=== PATIENT | female | born 1975 | race Caucasian/White ===

== ENCOUNTER 2021-12-10 09:49 | Outpatient (CLI) | payer OTHER, SELFPAY ==
[2021-12-10 13:58] LABS: Albumin* 4.1 g/dL (3.3-5.0); Chloride* 103 mmol/L (96-114); Potassium* 4.4 mmol/L (3.6-5.1); Sodium* 136 mmol/L (135-149)
[2021-12-10 14:00] LABS: Creatinine* 0.7 mg/dL (0.5-1.5); Estimated Glomerular Filt Rate 107 ml/min
[2021-12-10 14:01] LABS: Alanine Aminotransferase* 84 U/L (4-35); Alkaline Phosphatase* 130 U/L (40-150); Aspartate Amino Transferase* 79 U/L (12-35); Bilirubin Total* 0.2 mg/dL (0.1-1.5); Blood Urea Nitrogen* 12 mg/dL (5-24); Carbon Dioxide* 28 mmol/L (20-32); Glucose* 126 mg/dL (60-115); Total Protein* 7.2 g/dL (6.0-8.3)
[2021-12-10 14:02] LABS: Calcium* 9.6 mg/dL (8.4-10.6)
[2021-12-11 13:54] LABS: Follicle Stimulating Hormone 91.7 IU/L
== END 2021-12-10 09:50 | disposition home or self-care (01) ==
PROVIDERS: PCP Family Medicine; Visit Provider Family Medicine
DX: Z01.419 Encounter for gynecological examination (general) (routine) without abnormal findings (principal); R23.2 Flushing; E11.9 Type 2 diabetes mellitus without complications; F32.81 Premenstrual dysphoric disorder; R74.01 Elevation of levels of liver transaminase levels
CPT/HCPCS: 80053; 83001; 84443

== ENCOUNTER 2022-03-26 11:20 | Outpatient (CLI) | payer OTHER, SELFPAY ==
[2022-03-26 21:29] LABS: Chloride* 101 mmol/L (96-114)
[2022-03-26 21:30] LABS: Potassium* 4.5 mmol/L (3.6-5.1); Sodium* 136 mmol/L (135-149)
[2022-03-26 21:32] LABS: Alanine Aminotransferase* 45 U/L (4-35); Alkaline Phosphatase* 115 U/L (40-150); Aspartate Amino Transferase* 53 U/L (12-35); Bilirubin Total* 0.3 mg/dL (0.1-1.5); Blood Urea Nitrogen* 12 mg/dL (5-24); Carbon Dioxide* 27 mmol/L (20-32); Cholesterol* 186 mg/dL (90-199); Creatinine* 0.7 mg/dL (0.5-1.5); Estimated Glomerular Filt Rate 106 ml/min; Glucose* 120 mg/dL (60-115); Total Protein* 6.7 g/dL (6.0-8.3); Triglycerides* 186 mg/dL (40-149)
[2022-03-26 21:33] LABS: Calcium* 9.2 mg/dL (8.4-10.6); HDL Cholesterol* 61 mg/dL (>=50); LDL Cholesterol Calculated 88 mg/dL (<100)
[2022-03-26 21:36] LABS: Total Protein Urine < 5 mg/dL
[2022-03-26 21:38] LABS: Creatinine Urine 116.6 mg/dL
[2022-03-26 21:42] LABS: Microalbumin Creatinine Ratio 0 mg/g (0-30); Microalbumin Urine < 1 mg/dL
[2022-03-26 22:20] LABS: Hepatitis C Virus Antibody* Negative (Negative)
== END 2022-03-26 11:21 | disposition home or self-care (01) ==
PROVIDERS: PCP Family Medicine; Visit Provider Family Medicine
DX: Z00.00 Encounter for general adult medical examination without abnormal findings (principal); E11.9 Type 2 diabetes mellitus without complications; Z13.6 Encounter for screening for cardiovascular disorders; Z11.59 Encounter for screening for other viral diseases
CPT/HCPCS: 80053; 80061; 82043; 82570; 84156; 86803

== ENCOUNTER 2022-06-03 16:59 | Outpatient (CLI) | payer OTHER, SELFPAY ==
--- NOTE | 2022-06-03 17:15 | CRLHL7_ITS ---
For Patients: As a result of the Century Cures Act, medical imaging exams and procedure reports are released immediately into your electronic medical record. You may view this report before your referring provider. If you have questions, please contact your health care provider. BILATERAL SCREENING MAMMOGRAM WITH COMPUTER-AIDED DETECTION AND TOMOSYNTHESIS TECHNIQUE: CC and MLO views were obtained. These mammographic images have been obtained using full-field digital technique. These mammographic images were interpreted with the benefit of computer-aided detection. Breast Tomosynthesis was used in this interpretation. COMPARISON FILM: 05/06/21, 05/23/20, 08/04/19. FINDINGS: The breasts are heterogeneously dense, which may obscure small masses IMPRESSION: There is no radiographic evidence for malignancy. ASSESSMENT: BI-RADS Category 1: Negative RECOMMENDATION: Routine screening mammogram in 1 year. A lay language report of this examination will be provided to the patient. David Bergeron M.D. Diagnostic Radiologist [email or web address] JACKY/Dictated by: David Bergeron MD @ 06/04/2022 10:50:00 AM (Electronically Signed)
== END 2022-06-03 17:00 | disposition home or self-care (01) ==
PROVIDERS: PCP Family Medicine; Visit Provider Registered Nurse
DX: Z12.31 Encounter for screening mammogram for malignant neoplasm of breast (principal); R92.2 Inconclusive mammogram
CPT/HCPCS: 77063; 77067

== ENCOUNTER 2022-06-27 12:23 | Outpatient (CLI) | payer OTHER, SELFPAY ==
[2022-06-27 21:44] LABS: Chloride* 106 mmol/L (96-114); Potassium* 4.5 mmol/L (3.6-5.1); Sodium* 138 mmol/L (135-149)
[2022-06-27 21:46] LABS: Bilirubin Total* 0.4 mg/dL (0.1-1.5); Creatinine* 0.9 mg/dL (0.5-1.5); Estimated Glomerular Filt Rate 78 ml/min
[2022-06-27 21:47] LABS: Alanine Aminotransferase* 72 U/L (4-35); Alkaline Phosphatase* 105 U/L (40-150); Aspartate Amino Transferase* 72 U/L (12-35); Blood Urea Nitrogen* 14 mg/dL (5-24); Calcium* 9.2 mg/dL (8.4-10.6); Carbon Dioxide* 26 mmol/L (20-32); Glucose* 126 mg/dL (60-115); Total Protein* 6.8 g/dL (6.0-8.3)
== END 2022-06-27 12:24 | disposition home or self-care (01) ==
PROVIDERS: PCP Family Medicine; Visit Provider Family Medicine
DX: R74.01 Elevation of levels of liver transaminase levels (principal)
CPT/HCPCS: 80053

== ENCOUNTER 2022-12-11 14:16 | Outpatient (CLI) | payer OTHER, SELFPAY ==
[2022-12-11 23:25] LABS: Chlamydia DNA Amplified* NOT DETECTED (No Detected); GC DNA Amplified* NOT DETECTED (No Detected)
== END 2022-12-11 14:17 | disposition home or self-care (01) ==
PROVIDERS: PCP Family Medicine; Visit Provider Registered Nurse
DX: N89.8 Other specified noninflammatory disorders of vagina (principal); R35.0 Frequency of micturition
CPT/HCPCS: 87086; 87491; 87591

== ENCOUNTER 2023-01-23 09:50 | Outpatient (CLI) | payer OTHER, SELFPAY | END 2023-01-23 09:51 | disposition home or self-care (01) | LOC: FRMREF 09:50 | PROVIDERS: PCP Family Medicine; Visit Provider Registered Nurse | DX: R35.0 Frequency of micturition (principal) | CPT/HCPCS: 87086 ==

== ENCOUNTER 2023-02-19 18:05 | Emergency (ER) | payer OTHER, SELFPAY ==
[2023-02-19] VITALS (16 sets, daily range): BP systolic 114–144; BP diastolic 71–84; PULSE 63–74; RESP 18; TEMP 36.1; O2SAT 95–98; BMI 43.3
--- NOTE | 2023-02-19 18:35 | CRLHL7_ITS ---
For Patients: As a result of the Century Cures Act, medical imaging exams and procedure reports are released immediately into your electronic medical record. You may view this report before your referring provider. If you have questions, please contact your health care provider. INDICATION: Chest pain. TECHNIQUE: Chest 2 views. COMPARISON: None. FINDINGS: No focal consolidation, pleural effusion, or pneumothorax. Normal heart size and pulmonary vascularity. The bones are unremarkable. IMPRESSION: No acute cardiopulmonary findings. Dictated by Linnea Mercado MD @ 02/19/2023 8:11:50 PM (Electronically Signed)
[2023-02-19 18:53] LABS: Basophils Absolute Auto 0.01 K/uL (0.00-0.30); Basophils Percent Auto 0.2 % (0.0-3.0); Eosinophils Absolute Auto 0.12 K/uL (0.00-0.50); Eosinophils Percent Auto 1.9 % (0.0-7.0); Hematocrit 42.8 % (33.0-51.0); Hemoglobin* 14.4 gm/dL (12.0-16.0); Immature Granulocytes Abs Auto 0.01 K/uL (0.00-0.30); Immature Granulocytes Pct Auto 0.2 %; Lymphocytes Absolute Auto 2.01 K/uL (0.90-2.90); Lymphocytes Percent Auto 31.4 % (20-44); Mean Corpuscular HGB Conc 34 gm/dL (32-36); Mean Corpuscular Hemoglobin 29 pg (26-34); Mean Corpuscular Volume 87 fL (80-100); Monocytes Percent Auto 9.4 % (0.0-11.0); Neutrophils Absolute Auto 3.65 K/uL (1.7-7.0); Neutrophils Percent Auto 56.9 % (42.0-72.0); Platelet Count* 197 K/uL (140-440); RDW Coefficient of Variation % 12.5 % (11.5-15.5); Red Blood Count 4.95 m/uL (4.00-5.20)
[2023-02-19 18:56] LABS: Slide Review Reflex No
[2023-02-19 18:59] LABS: Troponin, Point-of-Care* 0.01 ng/ml (0.01-0.04)
[2023-02-19 19:06] LABS: Chloride* 101 mmol/L (96-114); Potassium* 4.4 mmol/L (3.6-5.1); Sodium* 137 mmol/L (135-149)
[2023-02-19 19:09] LABS: Anion Gap 8 mEq/L (7-15); Blood Urea Nitrogen* 16 mg/dL (7-30); Carbon Dioxide* 28 mmol/L (20-32); Est. Creatinine Clearance* 60.56; Estimated Glomerular Filt Rate 69 ml/min; Glucose* 99 mg/dL (60-115)
[2023-02-19 19:10] LABS: Calcium* 8.9 mg/dL (8.4-10.6)
--- NOTE | 2023-02-19 19:20 | ED_ITS ---
HPI - Chest Pain General Date Seen: 02/19/23 Chief Complaint: Chest Pain Stated Complaint: Chest pain Time Seen by Provider: 02/19/23 18:11 Source: patient Mode of arrival: ambulatory Limitations: no limitations History of Present Illness HPI narrative: Patient is a 48-year-old female presenting to the emergency department for chest pain. She was sent in by her primary care provider for an abnormal EKG. Patient states she was getting evaluation for a sinus procedure she is having done. She informed her primary doctor that she was having chest pain. I spoke to primary care provider and she states that while the patient is looking well she is concerned because there was possible new anterior infarct that appears to be old but was not seen on her previous EKG. Patient was then Tiffany to [facility] Emergency Department. She states that while she has chest pain this has been going on for over 20 years in today's not any different than normal. She has had it evaluated multiple times and has always been normal. She does states she is scheduled to have a have a stress test done before she has her sinus procedure. Denies fevers, chills, weakness, shortness of breath, abdominal pain, headache, vision changes, lightheadedness, dizziness. Related Data Home Medications Medication Instructions Recorded Confirmed albuterol sulfate 90 mcg/actuation 2 inhalation PRN 12/10/21 02/19/23 aerosol inhaler Previous Rx's Medication Instructions Recorded aspirin 81 mg tablet,delayed 81 mg PO QDAY #90 tabs 06/27/22 release pravastatin 10 mg tablet 10 mg PO .Bedtime #90 tabs 07/25/22 triamcinolone acetonide 0.1 % 1 applic topical BID #80 grams 09/02/22 topical cream fluconazole 150 mg tablet 150 mg PO ONCE #1 tab 12/11/22 nitrofurantoin macrocrystal 100 mg 100 mg PO BID #10 caps 01/23/23 capsule (Macrodantin) venlafaxine 75 mg capsule,extended 75 mg PO QDAY #90 caps 02/19/23 release 24 hr Allergies Allergy/AdvReac Type Severity Reaction Status Date / Time azithromycin Allergy Unknown Anaphylaxis Verified 02/19/23 16:38 metformin AdvReac Intermediate Diarrhea Verified 02/19/23 16:38 Sulfa Antibiotics Allergy Unknown Dry patch Uncoded 02/19/23 16:38 on lip, purple spots on feet Review of Systems Status of ROS Reports: 10 or more systems reviewed and unremarkable except as noted in History and below [facility] Medical History Yeast dermatitis ?B37.2 - Candidiasis of skin and nail (ICD-10) Sinusitis ?J32.9 - Chronic sinusitis, unspecified (ICD-10) Hot flashes ?R23.2 - Flushing (ICD-10) History of hyperlipidemia ?Z86.39 - Personal history of other endocrine, nutritional and metabolic d isease (ICD-10) History of fatty infiltration of liver ?Z87.19 - Personal history of other diseases of the digestive system (ICD-10) History of abnormal uterine bleeding ?Z87.42 - Personal history of other diseases of the female genital tract (ICD-10) History of abnormal cervical Papanicolaou smear ?Z87.42 - Personal history of other diseases of the female genital tract (ICD-10) Surgical History H/O eye surgery ?Z98.890 - Other specified postprocedural states (ICD-10) History of endometrial ablation ?Z98.890 - Other specified postprocedural states (ICD-10) History of colposcopy ?Z98.890 - Other specified postprocedural states (ICD-10) Family History Father Bladder cancer Diabetes Paternal Grandfather Breast cancer Diabetes Coronary artery disease Heart disease Maternal Grandfather Coronary artery disease Paternal Grandmother Diabetes Maternal Grandmother Diabetes Social History Narrative: Exercises regularly Non-smoker Social alcohol use Smoking Status: Never smoker Little interest or pleasure in doing things: not at all Feeling down, depressed, or hopeless: not at all Exam Narrative Exam Narrative: Const: Well-nourished, Well-developed, in mild distress Eyes: PERRL, no conjunctival injection, and symmetrical lids HENT: Atraumatic external nose and ears. Moist mucous membranes. Neck: Symmetric, trachea midline, No thyromegaly. CVS: RRR, No murmurs or gallops. Peripheral pulses 2+ and equal in all extremities RESP: Unlabored respiratory effort. Clear to auscultation bilaterally. GI: Nontender/Nondistended, No rebound or guarding. MSK:Extremities w/o deformity, Normal Active ROM Skin: Warm, Dry. No rashes or lesions. Neuro: Normal Muscle tone, No focal neurological deficits. Psych: Awake, Alert, & Oriented x3. Appropriate mood and affect. Const Vital Signs, click to edit/add: Vital Signs - 24 hr 02/19/23 18:09 02/19/23 19:10 02/19/23 19:15 Temperature 97 F L Pulse Rate 66 68 Pulse Rate [Right Pulse Oximeter] 74 Respiratory Rate 18 Blood Pressure Blood Pressure [Right Upper Arm] 144/84 H Pulse Oximetry 98 98 96 Oxygen Delivery Method Room Air 02/19/23 19:17 02/19/23 19:18 02/19/23 19:30 Temperature Pulse Rate 65 67 69 Pulse Rate [Right Pulse Oximeter] Respiratory Rate Blood Pressure 125/78 Blood Pressure [Right Upper Arm] Pulse Oximetry 97 97 97 Oxygen Delivery Method 02/19/23 19:33 02/19/23 19:45 Temperature Pulse Rate 67 63 Pulse Rate [Right Pulse Oximeter] Respiratory Rate Blood Pressure Blood Pressure [Right Upper Arm] Pulse Oximetry 97 97 Oxygen Delivery Method Course Vital Signs Vital signs: Initial Vital Signs Temperature 97 F L 02/19/23 18:09 Temperature Source Temporal Artery Scan 02/19/23 18:09 Pulse Rate 74 02/19/23 18:09 Respiratory Rate 18 02/19/23 18:09 Blood Pressure 144/84 H 02/19/23 18:09 Blood Pressure Mean 104 02/19/23 18:09 Blood Pressure Position Sitting 02/19/23 18:09 Pulse Oximetry 98 02/19/23 18:09 Oxygen Delivery Method Room Air 02/19/23 18:09 Vital Signs Temperature 97 F L 02/19/23 18:09 Pulse Rate 74 02/19/23 18:09 Respiratory Rate 18 02/19/23 18:09 Blood Pressure 144/84 H 02/19/23 18:09 Pulse Oximetry 98 02/19/23 18:09 Oxygen Delivery Method Room Air 02/19/23 18:09 Temperature 97 F L 02/19/23 18:09 Pulse Rate 63 02/19/23 19:45 Respiratory Rate 18 02/19/23 18:09 Blood Pressure 125/78 02/19/23 19:17 Pulse Oximetry 97 02/19/23 19:45 Oxygen Delivery Method Room Air 02/19/23 18:09 MDM - Chest Pain MDM Narrative Medical decision making narrative: Patient is a 48-year-old female presenting for chest pain. She has had this chest pain on off for over 20 years and is not any different today than normal. She was sent in by her primary care provider for evaluation. She looks to be doing well right now and appears comfortable in bed. I believe a pulmonary embolism is unlikely at this time as she is not short of breath at all and symptoms do not worsen with deep breaths. Also the symptoms are not any different than her normal chest pain. Did order a troponin, CBC, BMP. Chest x- ray also ordered to look for signs of aortic dissection or pneumothorax. Again I believe these are unlikely. Lab Data Labs: Lab Results 02/19/23 02/19/23 02/19/23 Range/Units 18:35 18:44 20:00 WBC 6.40 (4.50-11.00) K/uL RBC 4.95 (4.00-5.20) m/uL Hgb 14.4 (12.0-16.0) gm/dL Hct 42.8 (33.0-51.0) % MCV 87 (80-100) fL MCH 29 (26-34) pg MCHC 34 (32-36) gm/dL RDW Coeff of Beatriz 12.5 (11.5-15.5) % Plt Count 197 (140-440) K/uL Neut % (Auto) 56.9 (42.0-72.0) % Lymph % (Auto) 31.4 (20-44) % [place] % (Auto) 9.4 (0.0-11.0) % Eos % (Auto) 1.9 (0.0-7.0) % Baso % (Auto) 0.2 (0.0-3.0) % Neut # (Auto) 3.65 (1.7-7.0) K/uL Lymph # (Auto) 2.01 (0.90-2.90) K/uL [place] # (Auto) 0.60 (0.00-0.90) K/UL Eos # (Auto) 0.12 (0.00-0.50) K/uL Baso # (Auto) 0.01 (0.00-0.30) K/uL Abs Immat Gran (auto) 0.01 (0.00-0.30) K/uL Imm/Tot Granulo (auto) 0.2 % Sodium 137 (135-149) mmol/L Potassium 4.4 (3.6-5.1) mmol/L Chloride 101 (96-114) mmol/L Carbon Dioxide 28 (20-32) mmol/L Anion Gap 8 (7-15) mEq/L BUN 16 (7-30) mg/dL Creatinine 1.0 (0.5-1.5) mg/dL Estimated Creat Clear 60.56 Estimated GFR 69 ml/min Glucose 99 (60-115) mg/dL Calcium 8.9 (8.4-10.6) mg/dL POC Troponin I 0.01 0.00 L (0.01-0.04) ng/ml Imaging Data Chest x-ray: Radiologist's impression: INDICATION: Chest pain. TECHNIQUE: Chest 2 views. COMPARISON: None. FINDINGS: No focal consolidation, pleural effusion, or pneumothorax. Normal heart size and pulmonary vascularity. The bones are unremarkable. IMPRESSION: No acute cardiopulmonary findings. Dictated by Linnea Mercado MD @ 02/19/2023 8:11:50 PM ECG Data Attestation: I personally reviewed and interpreted this ECG as follows: Prior ECG tracings: not available for review Interpretation: Normal sinus rhythm with a rate of 73 beats per minute, normal intervals, normal axis, no ST or T-wave abnormalities. I do not see Q-waves in the anterior leads Discharge Plan Discharge Clinical Impression: Atypical chest pain Patient Disposition: Home, Self-Care Condition: Stable Instructions: Noncardiac Chest Pain (ED) Additional Instructions: Follow-up with the primary care provider. Make sure you get your stress test scheduled. Return for new or worsening symptoms. Prescriptions: No Action albuterol sulfate 90 mcg/actuation HFA aerosol inhaler 2 inhalation PRN aspirin 81 mg tablet,delayed release (DR/EC) 81 mg PO QDAY Qty: 90 3RF pravastatin 10 mg tablet 10 mg PO .Bedtime Qty: 90 3RF triamcinolone acetonide 0.1 % cream 1 applic topical BID Qty: 80 1RF venlafaxine 75 mg capsule,extended release 24hr 75 mg PO QDAY Qty: 90 3RF nitrofurantoin macrocrystal [Macrodantin] 100 mg capsule 100 mg PO BID Qty: 10 0RF Rx Instructions: must administer with a meal/food fluconazole 150 mg tablet 150 mg PO ONCE Qty: 1 0RF Rx Instructions: as a single dose Follow Up/Referrals: Angie Salazar MD [Primary Care Provider] - Stand Alone Forms: [facility] Info Inst[facility]
== END 2023-02-19 21:21 | disposition home or self-care (01) ==
PROVIDERS: Emergency Provider Student in an Organized Health Care Education/Training Program; PCP Family Medicine
DX: R07.9 Chest pain, unspecified (principal)
CPT/HCPCS: 36415; 71046; 80048; 80053; 84443; 84484; 85025; 99283; 99284

== ENCOUNTER 2023-03-03 10:28 | Outpatient (CLI) | payer OTHER, SELFPAY ==
[2023-03-03 11:00] VITALS: BP 150/84; PULSE 96
--- NOTE | 2023-03-03 12:04 | W.PM.STED ---
Stress Test Note Date Date of test: 03/03/23 Providers Primary care provider: Angie Salazar Stress test physician: Vasu Brooke Stress Test Note Stress test ordered: Exercise Stress Test Indication for test: Preop- Chest pain Stress test medicine: None Results discussion: Patient is a very nice lady who presents here for the above test after discussion the risks benefits side effects she would like to proceed pretest EKG and review of cardiac stress test medical history form is done. Her rhythm is sinus, her rate is 81, with a blood pressure 118/75. No acute ST wave changes are noted. Standard Gaetano protocol is employed over a time course of 7 minutes 2nd, achieved a metabolic equivalent of 8.5 Mets with a maximum heart rate of 159 which is 109% of the maximum. She had some mild shortness of breath and leg discomfort, there is no EKG evidence of ischemia on review of the tracing, there is no dysrhythmias. And she recovered normally, conditioning was felt to be moderate. Impression: Negative electrographic portion of stress test. Subjectively and objectively negative also. Follow up suggested: Explained to the patient, she will follow up with primary care, she recovered normally,
== END 2023-03-03 10:29 | disposition home or self-care (01) ==
LOC: STRESS 10:28
PROVIDERS: PCP Family Medicine; Visit Provider Family Medicine
DX: R07.89 Other chest pain (principal); E11.9 Type 2 diabetes mellitus without complications; Z82.49 Family history of ischemic heart disease and other diseases of the circulatory system
CPT/HCPCS: 93016; 93017

== ENCOUNTER 2023-03-20 12:08 | Outpatient (CLI) | payer OTHER, SELFPAY | END 2023-03-20 12:09 | disposition home or self-care (01) | PROVIDERS: PCP Family Medicine; Visit Provider Family Medicine | DX: Z13.6 Encounter for screening for cardiovascular disorders (principal); Z11.59 Encounter for screening for other viral diseases | CPT/HCPCS: 80061; 86803 ==

== ENCOUNTER 2023-04-10 11:26 | Day surgery (SDC) | payer OTHER, SELFPAY ==
[2023-04-10] VITALS (12 sets, daily range): BP systolic 98–131; BP diastolic 47–81; PULSE 68–87; RESP 16–20; TEMP 36.1–36.8; O2SAT 94–99; BMI 44.0
[2023-04-10] MEDS: SODIUM CHLORIDE 0.9 % (FLUSH) 10 ML SYRINGE IVF (11:55)
[2023-04-10] MEDS: LACTATED RINGERS 1000 ML 1,000 ML 100 ML IV (11:55)
[2023-04-10] MEDS: COCAINE HCL 4 % 4 ML SOLUTION NOSTRIL-B (13:09)
[2023-04-10] MEDS: AYR SALINE NASAL GEL 1 APPLIC NOSTRIL-B (13:10)
[2023-04-10] MEDS: BUPIVACAINE 0.5%/EPINEPHRINE 0.9 MG (30.9 ML) INJECTION (13:15)
[2023-04-10] MEDS: MUPIROCIN 1 GM PACKET 1 APPLIC TOPICAL (13:31)
--- NOTE | 2023-04-10 13:45 | P.ENTPROC_ITS ---
Procedure Note Date of procedure: 04/10/23 Procedure: Preoperative diagnosis deviated septum nasal obstruction right middle turbinate julianna bullosa, nasal headache, inferior turbinate hypertrophy Postoperative diagnosis same Procedure nasal septoplasty, submucous partial resection right inferior turbinate, endoscopic partial resection right middle turbinate julianna bullosa Under general endotracheal anesthesia patient was prepped draped usual fashion the nose decongested injected. Stab incision was made in the anterior of the right inferior turbinate a tunnel created with a [place] dissector. A conservative anterior submucous resection was performed Luxflorian rahman. The Coblation was used for hemostasis and to cauterize intramurally along the inferior 10%. A right hemitransfixion incision was made. Left anterior and posterior tunnels were created. A vertical incision was made through the cartilage and a right posterior tunnel created. Posterior deflected portions of septal bone and cartilage were resected. A large 2 large pieces were trimmed returned to the posterior intraseptal space. The hemitransfixion was closed with 2 4-0 chromic sutures. Remainder procedure was done with the available assistance of a 0 degree endoscope. The right middle turbinate julianna was incised along its lateral inferior aspect. Incision was completed with the turbinate scissors. The turbinate was then crushed with the Kwame forceps. Silastic stents were secured on either side the septum with 3-0 nylon. Merocel packing was placed in each side of the nose. The patient procedure well was taken recovery satisfactory condition. Blood loss less than 10 mL. Surgeon: Kyle Jimenez MD
--- NOTE | 2023-04-10 14:01 | W.ANESCHARGE ---
Anesthesia Charges Start Date/Time Anesthesia Start Date: 04/10/23 Anesthesia Start Time: 12:55 Stop Date/Time Anesthesia Stop Date: 04/10/23 Anesthesia Stop Time: 13:50
[2023-04-10] MEDS: fentaNYL 100 MCG/2 ML inj 50 MCG IVP (14:12)
[2023-04-10] MEDS: ACETAMINOPHEN 325 MG TABLET 650 MG PO (15:16)
[2023-04-10] MEDS: IBUPROFEN 400 MG TABLET PO (15:16)
== END 2023-04-10 15:43 | disposition home or self-care (01) ==
LOC: OR 11:26
PROVIDERS: PCP Family Medicine; Visit Provider Otolaryngology
PROC: (CPT 31231; principal; 2023-04-10 12:45)
DX: J34.2 Deviated nasal septum (principal); J34.3 Hypertrophy of nasal turbinates; R51.9 Headache, unspecified
CPT/HCPCS: 30520; 30140; 31240; 00170; 82962; A9270; J0330; J1100; J2405; J2704; J3010; J7120

== ENCOUNTER 2023-05-01 08:03 | Outpatient (CLI) | payer OTHER, SELFPAY ==
--- NOTE | 2023-05-01 09:05 | W.ANESCHARGE ---
Anesthesia Charges Start Date/Time Anesthesia Start Date: 05/01/23 Anesthesia Start Time: 08:39 Stop Date/Time Anesthesia Stop Date: 05/01/23 Anesthesia Stop Time: 09:02
--- NOTE | 2023-05-01 09:48 | W.ANESCHARGE ---
Anesthesia Charges Start Date/Time Anesthesia Start Date: 05/01/23 Anesthesia Start Time: 08:39 Stop Date/Time Anesthesia Stop Date: 05/01/23 Anesthesia Stop Time: 09:02
== END 2023-05-01 08:04 | disposition home or self-care (01) ==
LOC: OP CLINIC 08:03
PROVIDERS: PCP Family Medicine; Visit Provider Internal Medicine
DX: Z12.11 Encounter for screening for malignant neoplasm of colon (principal); K63.5 Polyp of colon
CPT/HCPCS: 00811; 45380; 88305; J2704

== ENCOUNTER 2023-06-26 08:17 | Outpatient (CLI) | payer OTHER, SELFPAY | END 2023-06-26 08:18 | disposition home or self-care (01) | LOC: NFLDREF 08:18 | PROVIDERS: PCP Family Medicine; Visit Provider Registered Nurse | DX: R35.0 Frequency of micturition (principal); E11.9 Type 2 diabetes mellitus without complications; Z79.85 Long-term (current) use of injectable non-insulin antidiabetic drugs | CPT/HCPCS: 80053; 82043; 82570; 87086 ==

== ENCOUNTER 2023-07-01 15:21 | Outpatient (CLI) | payer OTHER, SELFPAY ==
[2023-07-01 19:33] LABS: Bacterial Vaginosis* DETECTED (No Detected); Candida glab/krus Not Detected (No Detected); Candida species Not Detected (No Detected); Trichomonas vaginalis Not Detected (No Detected)
== END 2023-07-01 15:22 | disposition home or self-care (01) ==
LOC: NFLDREF 15:21
PROVIDERS: PCP Family Medicine; Visit Provider Registered Nurse
DX: N89.8 Other specified noninflammatory disorders of vagina (principal)
CPT/HCPCS: 81513; 87481; 87661

== ENCOUNTER 2023-08-21 10:27 | Outpatient (CLI) | payer OTHER, SELFPAY ==
--- NOTE | 2023-08-21 10:45 | MM_ITS ---
Patient: BLANCA BADILLO Facility:?[facility] Patient ID:?[id number] Site Patient ID:?[id number]. Site :?[id number] Study:?XRay-Breast Bilateral 3D w/CAD-08/21/2023 10:56:18 AM Ordering Physician:Esa Final Report: BILATERAL SCREENING MAMMOGRAM WITH COMPUTER-AIDED DETECTION AND TOMOSYNTHESIS TECHNIQUE: CC and MLO views were obtained. These mammographic images have been obtained using full-field digital technique. These mammographic images were interpreted with the benefit of computer-aided detection. Breast Tomosynthesis was used in this interpretation. COMPARISON FILM: 06/03/2022, 05/06/2021. FINDINGS: The breasts are heterogeneously dense, which may obscure small masses. IMPRESSION: There is no radiographic evidence for malignancy. ASSESSMENT: BI-RADS Category 1: Negative RECOMMENDATION: Routine screening mammogram in 1 year. A lay language report of this examination will be provided to the patient. David Bergeron M.D. Diagnostic Radiologist [email or web address] MELISSA/sp R& Transcribed: 4:17 p.m. SP/Dictated by: David Bergeron MD @ 08/21/2023 12:28:00 PM Signed by:?David Bergeron MD @08/21/2023 4:21:36 PM (Electronic Signature)
== END 2023-08-21 10:28 | disposition home or self-care (01) ==
LOC: MAMMO 10:28
PROVIDERS: PCP Family Medicine; Visit Provider Registered Nurse
DX: Z12.31 Encounter for screening mammogram for malignant neoplasm of breast (principal); R92.2 Inconclusive mammogram
CPT/HCPCS: 77063; 77067

== ENCOUNTER 2023-08-25 15:10 | Emergency (ER) | payer OTHER, SELFPAY ==
[2023-08-25 15:15] VITALS: BP 140/81; PULSE 63; RESP 16; TEMP 36.7; O2SAT 97; BMI 40.4
--- NOTE | 2023-08-25 16:12 | ED_ITS ---
HPI - Dizziness General Time Seen by Provider: 16:12 Date Seen: 08/25/23 Chief Complaint: Dizziness/Vertigo Stated Complaint: Vertigo Time Seen by Provider: 08/25/23 16:12 Source: patient, RN notes reviewed and old records reviewed Mode of arrival: ambulatory Limitations: no limitations History of Present Illness HPI Narrative: 48-year-old female who comes in today with room spinning dizziness. This started on Thursday got better and then got worse again today. She has had dizziness like this in the past. This is worse when she turns her head, she also had some unsteadiness was walking earlier. She took Tylenol cold and Sinus and feels better now. She also has noted some pain in the right occipital region and some right-sided facial pain. No ringing in the ears, no numbness or tingling in the hands, feet, or face, difficulty with speech or swallowing. No other symptoms. Related Data Home Medications Medication Instructions Recorded Confirmed triamcinolone acetonide 0.1 % 1 applic topical BID PRN 03/20/23 08/25/23 topical cream Previous Rx's Medication Instructions Recorded venlafaxine 75 mg capsule,extended 75 mg PO QDAY #90 caps 02/19/23 release 24 hr pravastatin 10 mg tablet 10 mg PO .Bedtime #90 tabs 03/20/23 semaglutide 7 mg tablet (Rybelsus) 7 mg PO QDAY #90 tabs 06/26/23 Blood Glucose Meter #1 ea 07/24/23 blood sugar diagnostic (Blood #50 ea 07/24/23 Glucose Test strips) lancing device with lancets kit #1 ea 07/24/23 meclizine 25 mg chewable tablet 25 mg PO QID PRN vertigo #20 tabs 08/25/23 methylprednisolone 4 mg tablets in See Rx Instructions PO .COMPLEX 08/25/23 a dose pack (Medrol (Marco)) #21 ea ondansetron 4 mg disintegrating 4 mg PO Q6H PRN nausea and 08/25/23 tablet vomiting, vertigo #20 tabs Allergies Allergy/AdvReac Type Severity Reaction Status Date / Time azithromycin Allergy Unknown Anaphylaxis Verified 07/01/23 14:52 metformin AdvReac Intermediate Diarrhea Verified 07/01/23 14:52 Sulfa Antibiotics Allergy Unknown Dry patch Uncoded 07/01/23 14:52 on lip, purple spots on feet PFSH PFSH Medical History (Updated 08/25/23 @ 16:35 by Simba Levine MD) History of abnormal cervical Pap smear ?Z87.42 - Personal history of other diseases of the female genital tract (ICD-10) Surgical History (Updated 07/28/23 @ 22:04 by Deborah Luciano CNP) H/O LEEP ?Z98.890 - Other specified postprocedural states (ICD-10) H/O eye surgery ?Z98.890 - Other specified postprocedural states (ICD-10) History of endometrial ablation ?Z98.890 - Other specified postprocedural states (ICD-10) History of colposcopy ?Z98.890 - Other specified postprocedural states (ICD-10) Family History Father Bladder cancer Diabetes Paternal Grandfather Breast cancer Diabetes Coronary artery disease Heart disease Maternal Grandfather Coronary artery disease Paternal Grandmother Diabetes Maternal Grandmother Diabetes Social History Narrative: Exercises regularly Non-smoker Social alcohol use Smoking Status: Never smoker Do you use any of these nicotine containing products: None Second hand tobacco smoke exposure: No How many standard drinks containing alcohol do you have on a typical day: 1 or 2 How often do you have six or more drinks on one occasion: Never AUDIT-C Alcohol total score: 0 Non-prescribed substance use: denies use Caffeine: Yes Little interest or pleasure in doing things: not at all Feeling down, depressed, or hopeless: not at all service: No Exam Narrative: Exam Narrative: General: Well-developed and well-nourished, no acute distress Head: Atraumatic and normocephalic Eyes: Pupils are equal reactive, extraocular motions intact, conjunctiva clear ENT: External nose and ears are normal, posterior pharynx without erythema or exudate Neck: No midline cervical tenderness, full spontaneous range of motion the neck, trachea midline, no adenopathy Heart: Regular rate and rhythm no murmurs or thrills Lungs: Clear to auscultation bilaterally without wheezes or crackles Abdomen: Soft, nontender, nondistended with active bowel sounds Musculoskeletal: No tenderness, deformity, or edema Neurologic: Awake, alert, and oriented x3, no gross focal neurologic deficits, cranial nerves intact as tested. No nystagmus. Turning the head to the right and eye movements to the right illicit vertigo as does turning the head quickly to the right. Cerebellar testing is intact. No facial asymmetry, no upper lower extremity drift. Gait is steady. Psych: Mood and affect are appropriate Skin: No rashes Const: Vital Signs, click to edit/add: Vital Signs - 24 hr 08/25/23 15:15 Temperature 98.1 F Pulse Rate [Right Pulse Oximeter] 63 Respiratory Rate 16 Blood Pressure [Ri ght Upper Arm] 140/81 H Pulse Oximetry 97 Oxygen Delivery Me thod Room Air Course Course ED Course: Reviewed most recent primary care visit from June 2023 which was routine follow-up, was doing well diabetes that time and had a little bit of weight loss, also some bilateral epicondylitis as well as depression which was doing well. Patient presents today with vertigo that she had a couple of days ago, improved and now worse again. On exam here, she is in no distress. She does note increased dizziness when she turns her head to the right and with eye movements to the right, although after couple of seconds this stabilizes. She has no other neurologic symptoms. Symptoms are most consistent with peripheral vertigo. She does have a little bit of right-sided occipital headache but no neck pain or limited motion and this is reproducible with palpation at the occipital insertion, this is most consistent with musculoskeletal pain and not consistent with vertebral artery dissection. Symptoms are improved at this point from earlier today. Given history, typical symptoms for peripheral vertigo, no other neurologic symptoms, this is most consistent with a peripheral process, patient has some sinus pain and congestion, so this could represent labyrinthitis versus BPPV. Meclizine and Zofran for symptom management, patient is also here to have this resolved as quickly as possible and so will start a Medrol Dosepak as well. Vital Signs Vital signs: Initial Vital Signs Temperature 98.1 F 08/25/23 15:15 Temperature Source Temporal Artery Scan 08/25/23 15:15 Pulse Rate 63 08/25/23 15:15 Pulse Rhythm Regular 08/25/23 15:15 Pulse Strength 3+ Normal 08/25/23 15:15 Respiratory Rate 16 08/25/23 15:15 Blood Pressure 140/81 H 04/09/24 15:15 Blood Pressure Mean 100 08/25/23 15:15 Blood Pressure Position Sitting 08/25/23 15:15 Pulse Oximetry 97 08/25/23 15:15 Oxygen Delivery Method Room Air 08/25/23 15:15 Vital Signs Temperature 98.1 F 08/25/23 15:15 Pulse Rate 63 08/25/23 15:15 Respiratory Rate 16 08/25/23 15:15 Blood Pressure 140/81 H 08/25/23 15:15 Pulse Oximetry 97 08/25/23 15:15 Oxygen Delivery Method Room Air 08/25/23 15:15 Temperature 98.1 F 08/25/23 15:15 Pulse Rate 63 08/25/23 15:15 Respiratory Rate 16 08/25/23 15:15 Blood Pressure 140/81 H 08/25/23 15:15 Pulse Oximetry 97 08/25/23 15:15 Oxygen Delivery Method Room Air 08/25/23 15:15 Discharge Plan Discharge Clinical Impression: Occipital pain, Vertigo Patient Disposition: Home, Self-Care Condition: Stable Instructions: Vertigo (DC) Additional Instructions: Take medications as prescribed for vertigo and Medrol Dosepak Activity Level: Activity as Tolerated Discharge Diet: Regular Prescriptions: New meclizine 25 mg tablet,chewable 25 mg PO QID PRN (Reason: vertigo) Qty: 20 0RF ondansetron 4 mg tablet,disintegrating 4 mg PO Q6H PRN (Reason: nausea and vomiting, vertigo) Qty: 20 0RF methylprednisolone [Medrol (Marco)] 4 mg tablets,dose pack See Rx Instructions .ROUTE .COMPLEX Qty: 21 0RF Rx Instructions: for 6 days No Action triamcinolone acetonide 0.1 % cream 1 applic topical BID PRN pravastatin 10 mg tablet 10 mg PO .Bedtime Qty: 90 3RF venlafaxine 75 mg capsule,extended release 24hr 75 mg PO QDAY Qty: 90 3RF Rybelsus 7 mg tablet 7 mg PO QDAY Qty: 90 12RF (DME) Blood Glucose Meter Mis See Rx Instructions .Route Qty: 1 0RF Rx Instructions: As directed (DME) Blood Glucose Test Strip See Rx Instructions .Route Qty: 50 0RF Rx Instructions: 1-2 times daily. (DME) lancing device with lancets Kit See Rx Instructions .Route Qty: 1 0RF Rx Instructions: As directed Follow Up/Referrals: Angie Salazar MD [Primary Care Provider] - Stand Alone Forms: [employer] Info Instructions
[2023-08-25] MEDS: MECLIZINE HCL 25 MG TABLET PO (16:53)
== END 2023-08-25 17:06 | disposition home or self-care (01) ==
LOC: ED 16:48
PROVIDERS: Emergency Provider Family Medicine; PCP Family Medicine
DX: M54.81 Occipital neuralgia (principal)
CPT/HCPCS: 99283; A9270

== ENCOUNTER 2023-12-25 12:13 | Outpatient (CLI) | payer OTHER, SELFPAY | END 2023-12-25 12:14 | disposition home or self-care (01) | LOC: FRMREF 12:13 | PROVIDERS: PCP Family Medicine; Visit Provider Family Medicine | DX: R74.01 Elevation of levels of liver transaminase levels (principal); E11.9 Type 2 diabetes mellitus without complications | CPT/HCPCS: 80053 ==

== ENCOUNTER 2024-02-16 12:02 | Outpatient (CLI) | payer OTHER, SELFPAY ==
--- OUTSIDE RECORDS SUMMARY | 2024-02-16 12:06 | XMS_ITS | Encounter Summary ---
Author Organization [facility] Address [address] [place] [address] Care Team Providers Care Aircraft Cleaner Name Role Phone Shaquille Valenzuela MD Primary Care Provider Bianca, Shaquille Luther MD Unavailable Shaquille Valenzuela MD Unavailable Yokasta Forbes REAL ESTATE AGENT Unavailable Shaquille Valenzuela MD Unavailable AndreiYokasta lamar REAL ESTATE AGENT Unavailable Shaquille Valenzuela MD Unavailable Froy Walker MD Primary Care Provider Yokasta Forbes REAL ESTATE AGENT Unavailable Alok Tanner Mai, MD Unavailable Yokasta Forbes REAL ESTATE AGENT Unavailable Shaquille Valenzuela MD Unavailable Yokasta Forbes REAL ESTATE AGENT Unavailable Froy Walker MD Unavailable [phone] lEi Walker RN Unavailable Unavaila Paul Galan MD Unavailable [facility] Primary Care Provider Froy Walker MD Unavailable [phone] [facility] [place], [facility] Unavailable Reason for Visit * Reason Onset Date Comments Orders 03/27/2016 MRI Encounter Details Date Type Department Care Team (Late st Contact Info) Description 03/27/2016 [facility] Jaime [address] [facility] [place] [phone] Shaquille Valenzuela MD [address] [facility] [place] [address] Orders (MRI) Social History Tobacco Use Types Packs/Day Years Used Date Smoking Tobacco: Former Smokeless Tobacco: Never Alcohol Use Standard Drinks/Week Comments Yes 0 (1 standard drink = 0.6 oz pur e alcohol) rarely Sex and Gender Information Value Date Recorded Sex Assigned at Not on file Gender Identity Not on file Sexual Orientation Not on file documented as of this encounter Miscellaneous Notes * Telephone Encounter - Janett Velazquez RN - 03/27/2016 11:14 AM ASTRONOMY INSTRUCTOR FYI-patient notes that she has a CT done about 4 or 5 years ago and abnormal liver was noted then. She will proceed with the MRI. Janett Velazquez RN Message handled by Nurse Triage. ONOMY INSTRUCTOR documented in this encounter Plan of Treatment Not on file documented as of this encounter Visit Diagnoses Not on filedocumented in this encounter Additional Health Concerns Assessment Noted Time PHQ-9 Depression Total Score: 2 03/05/20 16 7:17 AM CDT documented as of this encounter Care Teams Aircraft Cleaner Relationship Specialty Start Date End Date Shaquille Valenzuela MD PCP - General Internal Medicine 12/13/15 08/25/19 Shaquille Valenzuela MD [address] [place] [address] PCP - Assigned PCP 06/30/16 07/20/18 Froy Walker MD [address] [place] [address] [place] [address] PCP - General Internal Medicine 08/26/19 04/25/[address] [address] PCP - General 04/26/21 Shaquille Valenzuela MD [address] [place], [place] [address] [address] Assigned PCP 06/30/16 03/05/19 Yokasta Forbes, REAL ESTATE AGENT [address] [place] [address] [place] [address] Assigned PCP 03/06/19 06/04/19 Shaquille Valenzuela MD [address] [place], [place] [address] [place] [address] [address] Assigned PCP 06/05/19 07/23/19 Yokasta Forbes, REAL ESTATE AGENT [address] [place] [address] [place] [address] Assigned PCP 07/24/19 08/06/19 Shaquille Valenzuela MD [address] [place], [place] [address] [address] [address] Assigned PCP 08/07/19 08/20/19 Yokasta Forbes, REAL ESTATE AGENT [address] [place] [address] [place] [address] Assigned PCP 08/21/19 08/27/19 Alok Tanner Mai, MD [address] [place] [address] [place] [address] Assigned PCP 08/28/19 09/03/19 Yokasta Forbes, REAL ESTATE AGENT [address] [place] [address] [place] [address] Assigned PCP 09/04/19 09/10/19 Shaquille Valenzuela MD [address] [place] [address] [place] [id number] Assigned PCP 09/11/19 09/17/19 Yokasta Forbes, REAL ESTATE AGENT [address] [place] [address] [place] [address] Assigned PCP 09/18/19 01/21/20 Froy Walker MD [address] [place] [address] [place] [address] Assigned PCP 01/22/20 05/02/22 Eli Walker, KIMBERLY Personal Advocate & Liaison (PAL) 03/07/20 10/16/20 Paul Brooks MD [address] [place] [place] [address] Assigned OBGYN Provider 03/09/20 2 Froy Walker MD [address] [place] [address] [place] [address] Assigned PCP 07/12/22 03/20/23 [facility] - Angel Sandoval [address] [place] [address] Assigned PCP 06/11/23 01/07/24 documented as of this encounter
--- OUTSIDE RECORDS SUMMARY | 2024-02-16 12:06 | XMS_ITS | Encounter Summary ---
Author Organization [facility] Address [address] [place] [address]. [place] [address] Care Team Providers Care Crocodile Farmer Name Role Phone Froy Walker MD Primary Care Provider [phone] Froy Walker MD Unavailable [phone] Eli Walker RN Unavailable Unavaila [facility] Paul Brooks MD Unavailable [phone] [facility] Primary Care Provider Froy Walker MD Unavailable [phone] [facility] - Andres Sandoval [facility] Unavailable Encounter Details Date Type Department Care Team (Late st Contact Info) Description 02/15/2020 MyC Medical Advice [facility] [address] [place] [phone] Paul Brooks MD [address] [place] [address] Social History Tobacco Use Types Packs/Day Years Used Date Smoking Tobacco: Former Cigarettes 0 0 05/18/2005 - 05/18/2005 Smokeless Tobacco: Never Alcohol Use Standard Drinks/Week Comments Yes 0 (1 standard drink = 0.6 oz pur e alcohol) social PHQ-2 Answer Date Recorded PHQ-2 Score 0 05/26/2018 Sex and Gender Information Value Date Recorded Sex Assigned at Not on file Gender Identity Not on file Sexual Orientation Not on file COVID-19 Exposure Response Date Recorded In the last month, have you been in contact with someone who was confirmed or suspected to have Coronavirus / COVID-19? No / Unsure 02/15/2020 10:23 AM CDT documented as of this encounter Plan of Treatment Not on file documented as of this encounter Visit Diagnoses Not on filedocumented in this encounter Additional Health Concerns Assessment Noted Time PHQ-9 Depression Total Score: 6 09/11/19 19 11:17 AM CDT documented as of this encounter Care Teams Crocodile Farmer Relationship Specialty Start Date End Date Froy Walker MD [address] [place] [address] [place] [address] PCP - General Internal Medicine 08/26/19 04/25/[address] [address] PCP - General 04/26/21 Froy Walker MD [address] [place] [address] [place] [address] Assigned PCP 01/22/20 05/02/22 Eli Walker, KIMBERLY Personal Advocate & Liaison (PAL) 03/07/20 10/16/20 Paul Brooks MD [address] [place] [address] Assigned OBGYN Provider 03/09/20 2 Froy Walker MD [address] [place] [address] [place] [address] Assigned PCP 07/12/22 03/20/23 [facility] Jaime [address] [place] [address] Assigned PCP 06/11/23 01/07/24 documented as of this encounter
--- OUTSIDE RECORDS SUMMARY | 2024-02-16 12:06 | XMS_ITS | Encounter Summary ---
Author Organization [facility] Address [address] [place] [address] Care Team Providers Care Suede Cleaner Name Role Phone Shaquille Valenzuela MD Primary Care Provider [phone] MalvernShaquille MD Unavailable Yokasta Forbes TURN DOWN MAN Unavailable Shaquille Valenzuela MD Unavailable [phone] Yokasta Forbes TURN DOWN MAN Unavailable Shaquille Valenzuela MD Unavailable Froy Walker MD Primary Care Provider Yokasta Forbes NP Unavailable Alok Tanner Mai, MD Unavailable Yokasta Forbes TURN DOWN MAN Unavailable Shaquille Valenzuela MD Unavailable [phone] Yokasta Forbes TURN DOWN MAN Unavailable Froy Walker MD Unavailable [phone] Eli Walker RN Unavailable Unavaila Paul Galan MD Unavailable [phone] [facility] Primary Care Provider Froy Walker MD Unavailable [phone] [facility] Jaime [facility] Unavailable Reason for Visit * Reason Onset Date Comments Refill Request 09/27/2018 Encounter Details Date Type Department Care Team (Late st Contact Info) Description 09/27/2018 My[facility] [place] [address] [facility] [address] [place] [phone] [place] [address] [place] [address] [place] [address] Refill Request Social History Tobacco Use Types Packs/Day Years Used Date Smoking Tobacco: Former Smokeless Tobacco: Never Alcohol Use Standard Drinks/Week Comments Yes 0 (1 standard drink = 0.6 oz pur e alcohol) rarely PHQ-2 Answer Date Recorded PHQ-2 Score 0 05/26/2018 Sex and Gender Information Value Date Recorded Sex Assigned at Not on file Gender Identity Not on file Sexual Orientation Not on file documented as of this encounter Plan of Treatment Not on file documented as of this encounter Visit Diagnoses Diagnosis PMDD (premenstrual dysphoric disorder) Premenstrual tension syndromes documented in this encounter Additional Health Concerns Assessment Noted Time PHQ-9 Depression Total Score: 6 09/11/19 19 11:17 AM CDT documented as of this encounter Care Teams Suede Cleaner Relationship Specialty Start Date End Date Shaquille Valenzuela MD PCP - General Internal Medicine 12/13/15 08/25/19 Froy Walker MD [address] [place] [address] [place] [address] PCP - General Internal Medicine 08/26/19 04/25/[address] [id number] PCP - General 04/26/21 [place] [address] [place] [address] [place] [address] Assigned PCP 06/30/16 03/05/19 Yokasta Forbes, TURN DOWN MAN [address] [place] [address] [place] [address] Assigned PCP 03/06/19 06/04/19 Shaquille Valenzuela MD [address] [place] [address] [place] [address] Assigned PCP 06/05/19 07/23/19 Yokasta Forbes NP [address] [place] [address] [place] [address] Assigned PCP 07/24/19 08/06/19 Shaquille Valenzuela MD [address] [place] [address] [place] [address] Assigned PCP 08/07/19 08/20/19 Yokasta Forbes TURN DOWN MAN [address] [place] [address] [place] [address] Assigned PCP 08/21/19 08/27/19 Alok Tanner Mai, MD [address] [place] [address] [place] [address] Assigned PCP 08/28/19 09/03/19 Yokasta Forbes NP [address] [place] [address] [place] [address] Assigned PCP 09/04/19 09/10/19 Shaquille Valenzuela MD [address] [place], [place] [address] [address] [address] Assigned PCP 09/11/19 09/17/19 Yokasta Forbes NP [address] [place] [address] [place] [address] Assigned PCP 09/18/19 01/21/20 Froy Walker MD [address] [place] [address] [place] [address] Assigned PCP 01/22/20 05/02/22 Eli Walker RN Personal Advocate & Liaison (PAL) 03/07/20 10/16/20 Paul Brooks MD [address] [facility] [address] Assigned OBGYN Provider 03/09/20 2 Froy Walker MD [address] [place] [address] [place] [address] Assigned PCP 07/12/22 03/20/23 Clinic - Angel Sandoval [facility] [address] [address] [place] [address] Assigned PCP 06/11/23 01/07/24 documented as of this encounter
--- OUTSIDE RECORDS SUMMARY | 2024-02-16 12:06 | XMS_ITS | Referral Summary ---
Author Organization [facility] Address [address] [place] [address]. [place] [address] Care Team Providers Care Night Shift Manager Name Role Phone Clinic, [facility] Primary Care Provider Allergies Active Allergy Reactions Criticality Noted Date Comments Sulfa Antibiotics 02/14/2015 Dry patch on lip, purple spots on her feet Azithromycin Anaphylaxis High 02/14/2015 Medications Medication Sig Dispensed Refills Start Date End Date Status ASPIRIN NOT PRESCRIBED (INTENTIONAL)Indic ations:Type 2 diabetes mellitus without complication (H) Antiplatelet medication not prescribed intentionally due to Not indicated based on age 0 each 0 12/13/2015 Active Additional Information Patient not taking.Reported on 06/20/2020 CAROL/ARB NOT PRESCRIBED, INTENTIONAL,Indica tions:Type 2 diabetes mellitus without complication (H) CAROL & ARB not prescribed due to Patient of childbearing potential 12/13/2015 Active Additional Information Patient not taking.Reported on 06/20/2020 albuterol (PROAIR HFA/PROVENTIL HFA/VENTOLIN HFA) 108 (90 Base) MCG/ACT inhalerIndications :Cough Inhale 2 puffs into the lungs every 6 hours as needed for shortness of breath / dyspnea or wheezing 1 Inhaler 3 03/16/2020 Active clobetasol (TEMOVATE) 0.05 % external ointmentIndication s:Irritation of vulva Apply topically 2 times daily 60 g 1 06/20/2020 Active metFORMIN (GLUCOPHAGE-XR) 500 MG 24 hr tabletIndications: Type 2 diabetes mellitus without complication, without long-term current use of insulin (H) Take 1 tablet (500 mg) by mouth daily (with dinner) 90 tablet 1 07/30/2020 Active fluconazole (DIFLUCAN) 150 MG tabletIndications: Yeast infection of the vagina Take 1 tab, ok to repeat dose and take another 1 tab in 1-2 days if symptoms not improved 2 tablet 11/16/2020 Active metroNIDAZOLE (METROGEL) 0.75 % vaginal gelIndications:Mark terial vaginosis Place 1 applicator (5 g) vaginally daily 35 g 11/18/2020 Active clobetasol (TEMOVATE) 0.05 % external ointmentIndication s:Irritation of vulva Apply topically 2 times daily 45 g 12/11/2020 Active pravastatin (PRAVACHOL) 10 MG tabletIndications: Hyperlipidemia LDL goal <100 TAKE 1 TABLET DAILY 90 tablet 01/28/2021 Active venlafaxine (EFFEXOR-XR) 37.5 MG 24 hr capsuleIndications :PMDD (premenstrual dysphoric disorder) Take 1 capsule (37.5 mg) by mouth daily Visit needed prior to additional refills. 90 capsule 3 04/30/2021 Active Active Problems Problem Noted Date Diagnosed Date PMDD 09/10/2017 Fatty liver disease, nonalcoholic 08/23/2017 Abnormal uterine bleeding (AUB) 04/17/2017 Transaminitis 04/09/2016 Liver mass, right lobe 03/27/2016 Type 2 diabetes mellitus wit hout complication, without long-term current use of insulin 03/14/2016 Adjustment disorder with anxious mood 01/16/2016 Condyloma 01/02/2016 Hyperlipidemia LDL goal <100 12/14/2015 Abnormal glandular Papanicolaou smear of cervix 04/16/2015 Overview: Hx of LEEP in 02/201411/15/14 Pt reports pap with mild abnormality 01/02/16 Pap= NIL, Neg HPV. 1 yr co-test 03/04/17 NIL, Neg HPV. Plan 3 yr co-test 06/09/18 NIL, Neg HPV. Plan routine screening Elevated BMI 04/16/2015 Gastroesophageal reflux dise ase, esophagitis presence not specified 04/16/2015 Overview: IMO Regulatory Load FEB 2020 Menstrual migraine without s tatus migrainosus, not intractable 03/14/2015 Resolved Problems Problem Noted Date Diagnosed Date Resolved Date PMDD (premenstrual dysphoric disorder) 09/10/2017 03/16/2020 Type 2 diabetes mellitus without complication 12/13/19 16 03/16/2020 Immunizations Name Administration Dates Next Due COVID-19 MONOVALENT 12+ (Pfizer) 09/13/2020,04/0 10/2020 Influenza (IIV3) PF 02/07/2013, 2,03/07/2011, 010 Influenza Vaccine >6 months,quad, PF 03/02/2020, 02/13/2017,02/22/2016 Influenza Vaccine IM Ages 6- 35 Months 4 Valent (PF) 02/16/2014 Influenza Vaccine, 6+MO IM (QUADRIVALENT W/PRESERVATIVES) 03/02/2019,02/23/2015 TDAP (Adacel,Boostrix) 05/18/2009 TDAP Vaccine (Adacel) 02/22/2013 Td (Adult), Adsorbed 11/06/2019 Social History Tobacco Use Types Packs/Day Years Used Date Smoking Tobacco: Former Cigarettes 0 0 05/18/2005 - 05/18/2005 Smokeless Tobacco: Never Tobacco Cessation:Counseling Given: No Alcohol Use Standard Drinks/Week Comments Yes 0 (1 standard drink = 0.6 oz pur e alcohol) social PHQ-2 Answer Date Recorded PHQ-2 Score 0 06/20/2020 Adolescent Education Answer Date Record ed Getting School Help Needed Not on file 02/06 Sex and Gender Information Value Date Recorded Sex Assigned at Not on file Gender Identity Not on file Sexual Orientation Not on file Last Filed Vital Signs Vital Sign Reading Time Taken Comments Blood Pressure 118/76 11/16/2020 1:34 PM CDT Pulse 73 11/16/2020 1:34 PM CDT Temperature 37 ??C (98.6 ??F) 11/16/2020 1:34 PM CDT Respiratory Rate 18 06/24/2020 11:02 AM TELEHEALTH NURSE EDUCATOR Oxygen Saturation 97% 11/16/2020 1:34 PM CDT Inhaled Oxygen Concentration - - Weight 109.1 kg (240 lb 8 oz) 11/16/2020 1:34 PM CDT Height 165.1 cm (5' 5) 03/01/2020 2:50 PM CDT Body Mass Index 40.02 03/01/2020 2:50 PM CDT Plan of Treatment Not on file Procedures Procedure Name Priority Date/Time Associated Diagnosis Comments COLONOSCOPY - HIM SCAN 05/01/2023 12:00 AM TELEHEALTH NURSE EDUCATOR COMPREHENSIVE METABOLIC PANEL Routine 10/02/2020 1:25 PM CDT Type 2 diabetes mellitus without complication, without long-term current use of insulin (H) MA SCREENING BILATERAL W/ SERG Routine 05/23/2020 9:18 AM TELEHEALTH NURSE EDUCATOR Visit for screening mammogram LIPID REFLEX TO DIRECT LDL PANEL Routine 03/08/2020 6:59 AM CDT Type 2 diabetes mellitus without complication, without long-term current use of insulin (H) Hyperlipidemia LDL goal <100 PAP IMAGED THIN LAYER SCREEN Routine 06/09/2018 11:18 AM TELEHEALTH NURSE EDUCATOR Encounter for gynecological examination without abnormal finding from Last 3 Months or Most Recently Relevant to Health Maintenance Results * COLONOSCOPY - HIM SCAN (05/01/2023 12:00 AM TELEHEALTH NURSE EDUCATOR) 05/01/2023 Provider Outside PROCEDURES * Comprehensive metabolic panel (10/02/2020 1:25 PM CDT) Sodium 138 133 - 144 mmol/L 10/02/2020 7:30 PM [facility] Potassium 4.1 3.4 - 5.3 mmol/L 10/02/2020 7:30 PM [facility] Chloride 104 94 - 109 mmol/L 10/02/2020 7:30 PM [facility] Carbon Dioxide 31 20 - 32 mmol/L 10/02/2020 7:37 PM [facility] Anion Gap 3 3 - 14 mmol/L 10/02/2020 7:37 PM [facility] Glucose 87 70 - 99 mg/dL 10/02/2020 7:37 PM T [facility] Urea Nitrogen 11 7 - 30 mg/dL 10/02/2020 7:37 PM [facility] Creatinine 0.87 0.52 - 1.04 mg/dL 10/02/2020 7:37 PM T [facility] GFR Estimate 79 >60 mL/min/{1. 73_m2} 10/02/2020 7:37 PM [facility] Comment: Non GFR Calc Starting 05/04/2018, serum creatinine based estimated GFR (eGFR) will be calculated using the Chronic Kidney Disease Epidemiology Collaboration (CKD-EPI) equation. GFR Estimate If Black >90 >60 mL/min/{1. 73_m2} 10/02/2020 7:37 PM T [facility] Comment: GFR Calc Starting 05/04/2018, serum creatinine based estimated GFR (eGFR) will be calculated using the Chronic Kidney Disease Epidemiology Collaboration (CKD-EPI) equation. Calcium 9.1 8.5 - 10.1 mg/dL 10/02/2020 7:37 PM [facility] Bilirubin Total 0.3 0.2 - 1.3 mg/dL 10/02/2020 7:39 PM [facility] Albumin 3.7 3.4 - 5.0 g/dL 10/02/2020 7:39 PM [facility] Protein Total 7.5 6.8 - 8.8 g/dL 10/02/2020 7:39 PM [facility] Alkaline Phosphatase 90 40 - 150 U/L 10/02/2020 7:39 PM [facility] ALT 46 0 - 50 U/L 10/02/2020 7:39 PM [facility] AST 32 0 - 45 U/L 10/02/2020 7:39 PM [facility] Blood 10/02/2020 1:25 PM CDT 10/02/2020 1:26 PM CDT Fory Walker MD LAB - BLOOD ORDERABL ES [facility] [address] [place], [place] [address] [phone] * MA Screen Bilateral w/Serg (05/23/2020 9:18 AM TELEHEALTH NURSE EDUCATOR) Anatomical Region Laterality Modality Breast Bilateral Mammography Impressions 05/23/2020 2:32 PM TELEHEALTH NURSE EDUCATOR IMPRESSION: BI-RADS CATEGORY: 1 - ??Negative RECOMMENDED FOLLOW-UP: Annual Mammography. Exam results letter mailed to patient. VAISHALI TOBAR MD Narrative 05/23/2020 2:32 PM TELEHEALTH NURSE EDUCATOR SCREENING MAMMOGRAM, BILATERAL, DIGITAL w/CAD and TOMOSYNTHESIS - 05/23/2020 9:18 AM BREAST SYMPTOMS: No current breast complaints. COMPARISON: ??05/03/2019, 04/30/2018, 04/15/2016. BREAST DENSITY: Heterogeneously dense. COMMENTS: No findings of suspicion for malignancy. Procedure Note Vaishali Tobar MD - 05/23/2020 SCREENING MAMMOGRAM, BILATERAL, DIGITAL w/CAD and TOMOSYNTHESIS - 05/23/2020 9:18 AM BREAST SYMPTOMS: No current breast complaints. COMPARISON: 05/03/2019, 04/30/2018, 04/15/2016. BREAST DENSITY: Heterogeneously dense. COMMENTS: No findings of suspicion for malignancy. IMPRESSION: BI-RADS CATEGORY: 1 - Negative RECOMMENDED FOLLOW-UP: Annual Mammography. Exam results letter mailed to patient. VAISHALI TOBAR MD Paul Brooks MD IMG MAMMOGRAPH Y ORDERABLES * (ABNORMAL) Lipid panel reflex to direct LDL Fasting (03/08/2020 6:59 AM CDT) Cholesterol 183 <200 mg/dL 03/09/2020 10:03 AM CDT [facility] Triglycerides 212(H) <150 mg/dL 03/09/2020 10:03 AM CDT [facility] Comment: Borderline high: ??150-199 mg/dl High: ? 200-499 mg/dl Very high: ? >499 mg/dl Fasting specimen HDL Cholesterol 47(L) >49 mg/dL 0 10:04 AM CDT [facility] LDL Cholesterol Calculated 94 <100 mg/dL 03/09/2020 10:04 AM T [facility] Comment:Desirable: <100 mg/d l Non HDL Cholesterol 136(H) <130 mg/dL 03/09/2020 10:04 AM CDT [facility] Comment: Above Desirable: ??130-159 mg/dl Borderline high: ??160-189 mg/dl High: ? 190-219 mg/dl Very high: ? >219 mg/dl Blood specimen (specimen) 03/08/2020 6:59 AM CDT 03/08/2020 7:04 AM CDT Froy Walker MD LAB - BLOOD ORDERABL ES [facility] [address] [place], [place] [address] [phone] [facility] [address] [place] [address] * Pap imaged thin layer screen with HPV - recommended age 30 - 65 years (select HPV order below) (06/09/2018 11:18 AM TELEHEALTH NURSE EDUCATOR) PAP ADAN Mckinney Report Patient Name: ANGIE OCHOA MR#: [id number] Specimen #: [id number] Collected: 06/09/2018 Received: 06/10/2018 Reported: 06/14/2018 13:38 Ordering Phy(s): NATHANIEL DURAN For improved result formatting, select 'View Enhanced Report Format' under Linked Documents section. SPECIMEN/STAIN PROCESS: Pap imaged thin layer prep screening (Surepath, FocalPoint with guided screening) ? Pap-Cyto x 1, HPV ordered x 1 SOURCE: Cervical, endocervical Pap imaged thin layer prep screening (Surepath, FocalPoint with guided screening) SPECIMEN ADEQUACY: Satisfactory for evaluation. -Transformation zone component absent. CYTOLOGIC INTERPRETATION: Negative for intraepithelial lesion or malignancy Electronically signed out by: Melissa Ten Haken, CT (ASCP) Processed and screened at [facility] CLINICAL HISTORY: LMP: 05/01/2018 Irregular Bleeding, A previous normal pap Date of Last Pap: 03/04/2017, Papanicolaou Test Limitations: ??Cervical cytology is a screening test with limited sensitivity; regular screening is critical for cancer prevention; Pap tests are primarily effective for the diagnosis/preventi on of squamous cell carcinoma, not adenocarcinomas or other cancers. TESTING LAB LOCATION: [facility] [address] [place], [place] ??[address] COLLECTION SITE: Client: ??[facility] Location: EAOB (R) COPATH Cytologic material (specimen) 06/09/2018 11:18 AM TELEHEALTH NURSE EDUCATOR 06/10/2018 10:18 AM TELEHEALTH NURSE EDUCATOR Nathaniel Duran MD LAB - [facility] SPECIMEN COPATH from Last 3 Months or Most Recently Relevant to Health Maintenance Care Teams Night Shift Manager Relationship Specialty Start Date End Date [address] [phone] PCP - General 04/26/21
--- OUTSIDE RECORDS SUMMARY | 2024-02-16 12:06 | XMS_ITS | Encounter Summary ---
Author Organization [facility] Address [address] [place] [address]. [place] [address] Care Team Providers Care Agricultural Commodities Inspector Name Role Phone Shaquille Valenzuela MD Primary Care Provider Yokasta Forbes DRAFTER DETAIL Unavailable Shaquille Valenzuela MD Unavailable Froy Walker MD Primary Care Provider Yokasta Forbes DRAFTER DETAIL Unavailable Alok Tanner Mai, MD Unavailable [phone] Yokasta Forbes DRAFTER DETAIL Unavailable Shaquille Valenzuela MD Unavailable [phone] Yokasta Forbes DRAFTER DETAIL Unavailable [phone] Froy Walker MD Unavailable [phone] Eli Walker RN Unavailable Unavaila ble Paul Brooks MD Unavailable [phone] [facility] Primary Care Provider Froy Walker MD Unavailable [phone] [facility] - [facility] [place] [facility] Unavailable Encounter Details Date Type Department Care Team (Late st Contact Info) Description 08/01/2019 Rodolfo Ortiz [facility] [address] [facility] [address] [place] [address] Alok Beauchamp Mai, MD [address] [place] [address] [place] [address] Social History Tobacco Use Types Packs/Day Years [...] have Coronavirus / COVID-19? No / Unsure 08/04/2019 7:54 AM CDT documented as of this encounter Plan of Treatment Not on file documented as of this encounter Visit Diagnoses Not on filedocumented in this encounter Additional Health Concerns Assessment Noted Time PHQ-9 Depression Total Score: 6 09/11/19 19 11:17 AM CDT documented as of this encounter Care Teams Agricultural Commodities Inspector Relationship Specialty Start Date End Date Shaquille Valenzuela MD PCP - General Internal Medicine 12/13/15 08/25/19 Froy Walker MD [address] [place] [address] [place] [address] PCP - General Internal Medicine 08/26/19 04/25/[address] [address] PCP - General 04/26/21 Yokasta Forbes NP [address] [place] [address] [place] [address] Assigned PCP 07/24/19 08/06/19 Shaquille Valenzuela MD [address] [place] [address] [place] [address] Assigned PCP 08/07/19 08/20/19 Yokasta Forbes, DRAFTER DETAIL [address] [place] [address] [place] [address] Assigned PCP 08/21/19 08/27/19 Alok Tanner Mai, MD [address] [place] [address] [place] [address] Assigned PCP 08/28/19 09/03/19 Yokasta Forbes NP [address] [place] [address] [place] [address] Assigned PCP 09/04/19 09/10/19 Shaquille Valenzuela MD [address] [place] [address] [place] [address] Assigned PCP 09/11/19 09/17/19 Yokasta Forbes NP [address] [place] [address] [place] [address] Assigned PCP 09/18/19 01/21/20 Froy Walker MD [address] [place] [address] [place] [address] Assigned PCP 01/22/20 05/02/22 Eli Walker, KIBMERLY Personal Advocate & Liaison (PAL) 03/07/20 10/16/20 Paul Brooks MD [address] [place] [address] Assigned OBGYN Provider 03/09/20 2 Froy Walker MD [address] [facility] [place] [address] Assigned PCP 07/12/22 03/20/23 [facility] - [facility] [place] [facility] [address] [facility] [place] [address] Assigned PCP 06/11/23 01/07/24 documented as of this encounter
--- OUTSIDE RECORDS SUMMARY | 2024-02-16 12:06 | XMS_ITS | Encounter Summary ---
Author Organization [facility] Address [address] [place] [address] Care Team Providers Care Shoes Hand Sewer Name Role Phone Shaquille Valenzuela MD Primary Care Provider Bianca, Shaquille Luther MD Unavailable Shaquille Valenzuela MD Unavailable Yokasta Forbes HR ADMINISTRATIVE ASSISTANT Unavailable Shaquille Valenzuela MD Unavailable AndreiYokasta lamar HR ADMINISTRATIVE ASSISTANT Unavailable Shaquille Valenzuela MD Unavailable Froy Walker MD Primary Care Provider Yokasta Forbes HR ADMINISTRATIVE ASSISTANT Unavailable Alok Tanner Mai, MD Unavailable Yokasta Forbes HR ADMINISTRATIVE ASSISTANT Unavailable Shaquille Valenzuela MD Unavailable Yokasta Forbes HR ADMINISTRATIVE ASSISTANT Unavailable Froy Walker MD Unavailable [phone] Eli Walker RN Unavailable Unavaila Paul Galan MD Unavailable [phone] [facility] Primary Care Provider Froy Walker MD Unavailable [phone] [facility] [place], [facility] Unavailable Reason for Visit * Reason Onset Date Comments Medication Request 01/14/2018 Encounter Details Date Type Department Care Team (Late st Contact Info) Description 01/14/2018 MyC Medical Advice [facility] [place] [address] [place] [id number] Lakesha Romo DO [address] [facility] [address] [place], [place] [address] Medication Request Social History Tobacco Use Types Packs/Day [...] documented as of this encounter Care Teams Shoes Hand Sewer Relationship Specialty Start Date End Date Shaquille Valenzuela MD PCP - General Internal Medicine 12/13/15 08/25/19 Shaquille Valenzuela MD [address] [place] [address] [place] [address] PCP - Assigned PCP 06/30/16 07/20/18 Froy Walker MD [address] [facility] [place] [address] PCP - General Internal Medicine 08/26/19 04/25/[address] [address] PCP - General 04/26/21 Shaquille Valenzuela MD [address] [place] [address] [place] [address] Assigned PCP 06/30/16 03/05/19 Yokasta Forbes NP [address] [place] [address] [place] [address] Assigned PCP 03/06/19 06/04/19 Shaquille Valenzuela MD [address] [place] [address] [place] [address] Assigned PCP 06/05/19 07/23/19 Yokasta Forbes, HR ADMINISTRATIVE ASSISTANT [address] [place] [address] [place] [address] Assigned PCP 07/24/19 08/06/19 Shaquille Valenzuela MD [address] [place], [place] [address] [address] Assigned PCP 08/07/19 08/20/19 Yokasta Forbes, HR ADMINISTRATIVE ASSISTANT [address] [place] [address] [place] [address] Assigned PCP 08/21/19 08/27/19 Alok Tanner Mai, MD [address] [place] [address] [place] [address] Assigned PCP 08/28/19 09/03/19 Yokasta Forbes NP [address] [place] [address] [place] [address] Assigned PCP 09/04/19 09/10/19 Shaquille Valenzuela MD [address] [place], [place] [address] [address] Assigned PCP 09/11/19 09/17/19 Yokasta Forbes NP [address] [place] [address] [place] [address] Assigned PCP 09/18/19 01/21/20 Froy Walker MD [address] [place] [address] [place] [address] Assigned PCP 01/22/20 05/02/22 Eli Walker RN Personal Advocate & Liaison (PAL) 03/07/20 10/16/20 Paul Brooks MD [address] [place] [address] Assigned OBGYN Provider 03/09/20 Froy Walker MD [address] [place] [address] [place] [address] Assigned PCP 07/12/22 03/20/23 [facility] - [facility] [place] [facility] [address] [facility] [place] [address] Assigned PCP 06/11/23 01/07/24 documented as of this encounter
--- OUTSIDE RECORDS SUMMARY | 2024-02-16 12:06 | XMS_ITS | Encounter Summary ---
Author Organization [facility] Address [address] [place] [address] Care Team Providers Care Solid Surface Fabricator Name Role Phone Shaquille Valenzuela MD Primary Care Provider [phone] [place] Angeles[place] MD Unavailable Yokasta Forbes VISION CARE ASSOCIATE Unavailable Shaquille Valenzuela MD Unavailable [phone] Yokasta Forbes VISION CARE ASSOCIATE Unavailable Shaquille Valenzuela MD Unavailable Froy Walker MD Primary Care Provider Yokasta Forbes NP Unavailable Alok Tanner Mai, MD Unavailable Yokasta Forbes VISION CARE ASSOCIATE Unavailable Shaquille Valenzuela MD Unavailable [phone] Yokasta Forbes VISION CARE ASSOCIATE Unavailable Froy Walker MD Unavailable [phone] Eli Walker RN Unavailable Unavaila Paul Galan MD Unavailable [phone] [facility] Primary Care Provider Froy Walker MD Unavailable [phone] [facility] Jaime [facility] Unavailable Reason for Visit * Reason Onset Date Comments Medication Refill venlafaxine (E FFEXOR-XR) 37.5 MG 24 hr capsule Refill Request 01/28/2019 oxaprozin (DAYPR O) 600 MG tablet Encounter Details Date Type Department Care Team (Late st Contact Info) Description 01/28/2019 Refill [facility] [address] [facility] [address] [place] [address] [place] [address] [place] [address] [place] [address] Medication Refill (venlafaxine (EFFEXOR-XR) 37.5 MG 24 hr capsule); Refill Request (oxaprozin (DAYPRO) 600 MG tablet) Social History Tobacco Use Types Packs/Day Years [...] encounter Miscellaneous Notes * Telephone Encounter - Karen Medrano RN - 01/30/2019 9:20 PM CDT Routing refill request to provider for review/approval because: Labs out of range: PHQ9 PHQ-9 SCORE 01/16/2016 03/04/2016 09/10/2018 PHQ-9 Total Score 2 [address] Valenzuela: 09/10/18 with advised F/U in 6 months. Meds pended for #30 with reminder due for follow up. Please advise. Karen Medrano RN, BSN * Telephone Encounter - Richardbetypollo Savannah - 01/28/2019 10:01 AM CDT Requested Prescriptions Pending Prescriptions Disp Refills ??? venlafaxine (EFFEXOR-XR) 37.5 MG 24 hr capsule [Pharmacy Med Name: VENLAFAXINE HCL ER CAPS 37.5MG] Last Written Prescription Date: 10/27/2018 Last Fill Quantity: 90, # refills: 0 Last office visit: 11/04/2018 with prescribing provider: Shaquille Valenzuela Future Office Visit: 90 capsule 4 Sig: TAKE 1 CAPSULE DAILY Serotonin-Norepinephrine Reuptake Inhibitors Failed - 01/28/2019 9:31 AM Failed - PHQ-9 score of less than 5 in past 6 months Please review last PHQ-9 score. PHQ-9 SCORE 01/16/2016 03/04/2016 09/10/2018 PHQ-9 Total Score 2 2 6 MICHELINE-7 SCORE 01/16/2016 03/04/2016 09/10/2018 Total Score 4 6 2 Passed - Blood pressure under 140/90 in past 12 months BP Readings from Last 3 Encounters: 12/07/18 116/62 11/04/18 108/72 10/22/18 108/64 Passed - Medication is active on med list Passed - Patient is age 18 or older Passed - No active on record Passed - Normal serum creatinine on file in past 12 months Recent Labs Lab Test 09/07/18 0746 08/27/18 0908 CR 0.73 -- CREAT -- 0.6 Passed - No positive test in past 12 months Passed - Recent (6 mo) or future (30 days) visit within the authorizing provider's specialty Patient had office visit in the last 6 months or has a visit in the next 30 days with authorizing provider or within the authorizing provider's specialty. See Patient Info tab in inbasket, or Choose Columns in Meds & Orders section of the refill encounter. ??? oxaprozin (DAYPRO) 600 MG tablet [Pharmacy Med Name: OXAPROZIN TABS 600MG] Last Written Prescription Date: 09/10/2018 Last Fill Quantity: 60, # refills: 11 Last Office Visit: Future Office visit: Routing refill request to provider for review/approval because: Drug not on the [facility] refill protocol or controlled substance 60 tablet 12 Sig: TAKE 1 TO 2 TABLETS DAILY NEEDED There is no refill protocol information for this order documented in this encounter Plan of Treatment Not on file documented as of this encounter Visit Diagnoses Diagnosis PMDD (premenstrual dysphoric disorder) Premenstrual tension syndromes Intractable chronic migraine without aura and without status migrainosus Chronic migraine without aura, with intractable migraine, so stated, without mention of status migrainosus documented in this encounter Additional Health Concerns Assessment Noted Time PHQ-9 Depression Total Score: 6 09/11/19 19 11:17 AM CDT documented as of this encounter Care Teams Solid Surface Fabricator Relationship Specialty Start Date End Date Shaquille Valenzuela MD PCP - General Internal Medicine 12/13/15 08/25/19 Froy Walker MD [address] [place] [address] [place] [address] PCP - General Internal Medicine 08/26/19 04/25/[address] [id number] PCP - General 04/26/21 Shaquille Valenzuela MD [address] [place] [address] [place] [address] Assigned PCP 06/30/16 03/05/19 Yokasta Forbes, VISION CARE ASSOCIATE [address] [place] [address] [place] [address] Assigned PCP 03/06/19 06/04/19 Shaquille Valenzuela MD [address] [place], [place] [address] [address] Assigned PCP 06/05/19 07/23/19 Yokasta Forbes, VISION CARE ASSOCIATE [address] [place] [address] [place] [address] Assigned PCP 07/24/19 08/06/19 Shaquille Valenzuela MD [address] [place] [address] [place] [id number] Assigned PCP 08/07/19 08/20/19 Yokasta Forbes, VISION CARE ASSOCIATE [address] [place] [address] [place] [address] Assigned PCP 08/21/19 08/27/19 Alok Tanner Mai, MD [address] [place] [address] [place] [address] Assigned PCP 08/28/19 09/03/19 Yokasta Forbes VISION CARE ASSOCIATE [address] [place] [address] [place] [address] Assigned PCP 09/04/19 09/10/19 Shaquille Valenzuela MD [address] [place] [address] [place] [address] Assigned PCP 09/11/19 09/17/19 Yokasta Forbes, VISION CARE ASSOCIATE [address] [place] [address] [place] [address] Assigned PCP 09/18/19 01/21/20 Froy Walker MD [address] [place] [address] [place] [address] Assigned PCP 01/22/20 05/02/22 Eli Walker, KIMBERLY Personal Advocate & Liaison (PAL) 03/07/20 10/16/20 Paul Brooks MD Ani E GINA [facility] [place] [id number] Assigned OBGYN Provider 03/09/20 8// 2 Froy Walker MD [address] [facility] [place] [id number] Assigned PCP 07/12/22 03/20/23 Clinic - [place] [facility] [address] [facility] [place] [id number] Assigned PCP 06/11/23 01/07/24 documented as of this encounter
--- OUTSIDE RECORDS SUMMARY | 2024-02-16 12:06 | XMS_ITS | Encounter Summary ---
Author Organization [place] Address [address] [place] [address]. [place] [address] Care Team Providers Care School Inspector Name Role Phone Froy Walker MD Primary Care Provider [phone] Yokasta Forbes FERRYBOAT DECKHAND Unavailable [phone] Froy Walker MD Unavailable [phone] Eli Walker RN Unavailable Unavaila Paul Galan MD Unavailable [phone] [facility] Primary Care Provider Froy Walker MD Unavailable [phone] Clinic - [facility] [place] [facility] Unavailable Reason for Visit * Reason Onset Date Comments MyChart Communication 12/12/2019 facial norris n Encounter Details Date Type Department Care Team (Latest Contact Info) Description 12/12/2019 MyC Medical Advice [facility] Jaime [address] [place] [address] Drive [address] [place] [address] Froy Walker MD [address] [place] [address] [place] [address] MyChart Communication (facial pain) Social History Tobacco Use Types Packs/Day Years [...] documented as of this encounter Care Teams School Inspector Relationship Specialty Start Date End Date Froy Walker MD [address] [place] [address] [place] [address] PCP - General Internal Medicine 08/26/19 04/25/[address] [address] PCP - General 04/26/21 Yokasta Forbes NP [address] [place] [address] [place] [address] Assigned PCP 09/18/19 01/21/20 Froy Walker MD [address] [place] [address] [place] [address] Assigned PCP 01/22/20 05/02/22 Eli Walker, KIMBERLY Personal Advocate & Liaison (PAL) 03/07/20 10/16/20 Paul Brooks MD [address] [place] [address] Assigned OBGYN Provider 03/09/20 2 Froy Walker MD [address] [place] [address] [place] [address] Assigned PCP 07/12/22 03/20/23 [facility] Jaime M [address] [address] Assigned PCP 06/11/23 01/07/24 documented as of this encounter
--- OUTSIDE RECORDS SUMMARY | 2024-02-16 12:06 | XMS_ITS | Encounter Summary ---
Author Organization [place] Address [address] [place] [address] Care Team Providers Care Cyber Security Manager Name Role Phone Shaquille Valenzuela MD Primary Care Provider De BerryShaquille MD Unavailable Yokasta Forbes LINUX SECURITY ADMINISTRATOR Unavailable Shaquille Valenzuela MD Unavailable [phone] Yokasta Forbes LINUX SECURITY ADMINISTRATOR Unavailable Shaquille Valenzuela MD Unavailable Froy Walker MD Primary Care Provider Yokasta Forbes NP Unavailable Alok Tanner Mai, MD Unavailable Yokasta Forbes LINUX SECURITY ADMINISTRATOR Unavailable Shaquille Valenzuela MD Unavailable Yokasta Forbes LINUX SECURITY ADMINISTRATOR Unavailable Froy Walker MD Unavailable [phone] Eli Walker RN Unavailable Unavaila Paul Galan MD Unavailable [facility] Primary Care Provider Froy Walker MD Unavailable [phone] [facility] Jaime [facility] Unavailable Encounter Details Date Type Department Care Team (Late st Contact Info) Description 08/04/2018 MyC Medical Advice [facility]'s [place] [address] [place] [address] DemetriusLakesha [address] [facility] [address] [place] [address] BV (bacterial vaginosis) (Primary Dx) Social History Tobacco Use Types Packs/Day Years [...] encounter Miscellaneous Notes * Telephone Encounter - Steve Duran - 08/04/2018 2:12 PM CDT Recommend trial of antibiotics; Rx sent to pharmacy If symptoms do not resolve; recommend office visit * Telephone Encounter - Savannah Bertrand RN - 08/04/2018 1:52 PM CDT Please advise if you would like pt to come in for wet prep. Savannah Bertrand RN documented in this encounter Plan of Treatment Not on file documented as of this encounter Visit Diagnoses Diagnosis BV (bacterial vaginosis)- Primary Vaginitis and vulvovaginitis, unspecified documented in this encounter Additional Health Concerns Assessment Noted Time PHQ-9 Depression Total Score: 2 03/05/20 16 7:17 AM CDT documented as of this encounter Care Teams Cyber Security Manager Relationship Specialty Start Date End Date Shaquille Valenzuela MD PCP - General Internal Medicine 12/13/15 08/25/19 Froy Walker MD [address] [place] [address] [place] [address] PCP - General Internal Medicine 08/26/19 04/25/[address] [address] PCP - General 04/26/21 Shaquille Valenzuela MD [address] [place] [address] [place] [address] Assigned PCP 06/30/16 03/05/19 Yokasta Forbes, LINUX SECURITY ADMINISTRATOR [address] [place] [address] [place] [address] Assigned PCP 03/06/19 06/04/19 Shaquille Valenzuela MD [address] [place] [address] [place] [address] Assigned PCP 06/05/19 07/23/19 Yokasta Forbes, LINUX SECURITY ADMINISTRATOR [address] [place] [address] [place] [address] Assigned PCP 07/24/19 08/06/19 Shaquille Valenzuela MD [address] [place], [place] [address] [address] [address] Assigned PCP 08/07/19 08/20/19 Yokasta Forbes NP [address] [place] [address] [place] [address] Assigned PCP 08/21/19 08/27/19 Alok Tanner Mai, MD [address] [place] [address] [place] [address] Assigned PCP 08/28/19 09/03/19 Yokasta Forbes LINUX SECURITY ADMINISTRATOR [address] [place] [address] [place] [address] Assigned PCP 09/04/19 09/10/19 Shaquille Valenzuela MD [address] [place] [address] [place] [address] Assigned PCP 09/11/19 09/17/19 Yokasta Forbes, LINUX SECURITY ADMINISTRATOR [address] [place] [address] [place] [address] Assigned PCP 09/18/19 01/21/20 Froy Walker MD [address] [place] [address] [place] [address] Assigned PCP 01/22/20 05/02/22 Eli Walker, KIMBERLY Personal Advocate & Liaison (PAL) 03/07/20 10/16/20 Paul Brooks MD [address] [place] [address] Assigned OBGYN Provider 03/09/20 2 Froy Walker MD [address] [place] [address] [place] [address] Assigned PCP 07/12/22 03/20/23 [facility] [place] [address] [facility] [place] [address] Assigned PCP 06/11/23 01/07/24 documented as of this encounter
--- OUTSIDE RECORDS SUMMARY | 2024-02-16 12:06 | XMS_ITS | Encounter Summary ---
Author Organization [place] Address [address] [place] [address]. [place] [address] Care Team Providers Care Natural Resources Instructor Name Role Phone Froy Walker MD Primary Care Provider [phone] Froy Walker MD Unavailable [phone] Eli Walker RN Unavailable Unavaila [facility] Paul Brooks MD Unavailable [facility] Primary Care Provider Froy Walker MD Unavailable [phone] Clinic - [facility] [place] [facility] Unavailable Encounter Details Date Type Department Care Team (Late st Contact Info) Description 01/26/2020 MyC Medical Advice [facility] [address] [facility] [address] [place] [address] Rachel Fitch, BLAIR Social History Tobacco Use Types Packs/Day Years [...] documented as of this encounter Care Teams Natural Resources Instructor Relationship Specialty Start Date End Date Froy Walker MD [address] [place] [address] [place] [address] PCP - General Internal Medicine 08/26/19 04/25/[address] [address] PCP - General 04/26/21 Froy Walker MD [address] [place] [address] [place] [address] Assigned PCP 01/22/20 05/02/22 Eli Walker, KIMBERLY Personal Advocate & Liaison (PAL) 03/07/20 10/16/20 Paul Brooks MD [address] [place] [address] Assigned OBGYN Provider 03/09/20 2 Froy Walker MD [address] [place] [address] [place] [address] Assigned PCP 07/12/22 03/20/23 [facility] Jaime [address] [place] [address] Assigned PCP 06/11/23 01/07/24 documented as of this encounter
--- OUTSIDE RECORDS SUMMARY | 2024-02-16 12:06 | XMS_ITS | Encounter Summary ---
Author Organization [place] Address [address] [place] [address]. [place] [address] Care Team Providers Care Commercial Sales Director Name Role Phone Froy Walker MD Primary Care Provider Froy Walker MD Unavailable [phone] Eli Walker RN Unavailable Unavaila [facility] Paul Brooks MD Unavailable [facility] Primary Care Provider Froy Walker MD Unavailable [phone] [facility] - Andres [place] [facility] Unavailable Reason for Visit * Reason Onset Date Comments Refill Request 07/30/2020 benlafaxine from [employer] Encounter Details Date Type Department Care Team (Late st Contact Info) Description 07/30/[address] [facility] Jaime [address] [address] [place] [address] [place] [address] [place] [address] [place] [address] Refill Request (benlafaxine from [employer] ) Social History Tobacco Use Types Packs/Day Years Used Date Smoking Tobacco: Former Cigarettes 0 0 05/18/2005 - 05/18/2005 Smokeless Tobacco: Never Alcohol Use Standard Drinks/Week Comments Yes 0 (1 standard drink = 0.6 oz pur e alcohol) social PHQ-2 Answer Date Recorded PHQ-2 Score 0 06/20/2020 Sex and Gender Information Value Date Recorded Sex Assigned at Not on file Gender Identity Not on file Sexual Orientation Not on file documented as of this encounter Miscellaneous Notes * Telephone Encounter - Maddie Sykes MA - 07/30/2020 1:17 PM CDT Pt notified regarding her RX's and fasting labwork; pt verbalized understanding and had no further questions. Maddie Sykes MA on 07/30/2020 at 1:18 PM * Telephone Encounter - Froy Walker MD - 07/30/2020 12:07 PM CDT Rx sent in (also for pravastatin and metformin) - please let her know. She will need fasting labwork in February. * Telephone Encounter - Maggie Arias - 07/30/2020 11:57 AM CDT Reason for Call: Other prescription Detailed comments: Pt is requesting a refill of benlafaxine and needs it refilled before leaving onvacation. Sent to: [facility] - [address] P: [phone] F: [phone] Phone Number Patient can be reached at: Home number on file [phone] (home) Best Time: erma Can we leave a detailed message on this number? YES Call taken on 07/30/2020 at 11:57 AM by Maggie Arias documented in this encounter Plan of Treatment Not on file documented as of this encounter Visit Diagnoses Not on filedocumented in this encounter Additional Health Concerns Assessment Noted Time PHQ-9 Depression Total Score: 6 09/11/19 19 11:17 AM CDT documented as of this encounter Care Teams Commercial Sales Director Relationship Specialty [place] [address] [place] [address] [place] [address] PCP - General Internal Medicine 08/26/19 04/25/[address] [place] [address] PCP - General 04/26/21 Froy Walker MD [address] [place] [address] [place] [address] Assigned PCP 01/22/20 05/02/22 Eli Walker, KIMBERLY Personal Advocate & Liaison (PAL) 03/07/20 10/16/20 Paul Brooks MD [address] [place] [address] Assigned OBGYN Provider 03/09/20 2 Froy Walker MD [address] [place] [address] [place] [address] Assigned PCP 07/12/22 03/20/23 [facility] - Andres [place] [facility] [address] [place] [address] [place] [address] Assigned PCP 06/11/23 01/07/24 documented as of this encounter
--- OUTSIDE RECORDS SUMMARY | 2024-02-16 12:06 | XMS_ITS | Clinical Summary ---
Author Organization [facility] Address [address] [place] [address]. [place] [address] Care Team Providers Care Strategy Manager Name Role Phone Clinic, [facility] Primary Care Provider Allergies Active Allergy Reactions [...] Vaccine (Adacel) 02/22/2013 Td (Adult), Adsorbed 11/06/2019 Family History Medical History Relation Comments Cancer Father bladder Diabetes Father Other Cancer Father Bladder Coronary Artery Disease Maternal Grandfather Diabetes Maternal Grandmother Family History Negative Mother Breast Cancer Paternal Grandfather Coronary Artery Disease Paternal Grandfather Diabetes Paternal Grandfather Diabetes Paternal Grandmother Relation Status Comments Brother Alive x 3 Father Alive Maternal Grandfather Maternal Grandmother Mother Alive Paternal Grandfather Paternal Grandmother Social History Tobacco Use Types Packs/Day Years [...] CDT Respiratory Rate 18 06/24/2020 11:02 AM MILK VENDOR Oxygen Saturation 97% 11/16/2020 1:34 PM CDT Inhaled Oxygen Concentration - - Weight 109.1 kg (240 lb 8 oz) 11/16/2020 1:34 PM CDT Height 165.1 cm (5' 5) 03/01/2020 2:50 PM CDT Body Mass Index 40.02 03/01/2020 2:50 PM CDT Plan of Treatment Health Maintenance Due Date Last Done Comments ADVANCE CARE PLANNING 1975 ANNUAL REVIEW OF HM ORDERS 1973 CT COLONOGRAPHY 1973 FIT 1973 FLEX SIG 1973 sDNA (Cologuard) 1973 YEARLY PREVENTIVE VISIT 03/01/2021 03/01/20 20, 06/09/2018, 03/04/2017, Additional history exists LIPID 03/08/2021 03/08/2020, 03/18, 09/07/2018, Additional history exists MAMMO SCREENING 05/23/2022 05/23/2020, 07/16, 05/03/2019, Additional history exists ZOSTER IMMUNIZATION (1 of 2) 2023 PHQ-2 (once per calendar year) 2023 06/20/2020, 03/01/2020, 09/10/2018, Additional history exists PAP 06/09/2023 06/09/2018, 02/15, 01/02/2016, Additional history exists GLUCOSE 10/03/2023 10/02/2020, 0211/2020, 03/08/2020, Additional history exists COVID-19 Vaccine ( season) 2024 09/13/2020, 08/21/2020 INFLUENZA VACCINE (#1) 2024 , 03/02/2019, 02/13/2017, Additional history exists DTAP/TDAP/TD IMMUNIZATION (4 - Td or Tdap) 11/05/2029 11/06/2019, 02/22/2013, 05/18/2009 COLONOSCOPY 05/01/2033 05/01/2023, 04/17, 05/01/2023 COLORECTAL CANCER SCREENING 05/01/2033 MIGRAINE ACTION PLAN Completed 04/16/2015 HEPATITIS B IMMUNIZATION Discontinued HEPATITIS C SCREENING Discontinued HIV SCREENING Discontinued HPV IMMUNIZATION Aged Out No longer e ligible based on patient's age to complete this topic MENINGITIS IMMUNIZATION Aged Out No l onger eligible based on patient's age to complete this topic Pneumococcal Vaccine: Pediatrics (0 to 5 Years) and At-Risk Patients (6 to 64 Years) Discontinued RSV MONOCLONAL ANTIBODY Aged Out No l onger eligible based on patient's age to complete this topic Procedures Procedure Name Priority Date/Time Associated Diagnosis Comments COLONOSCOPY - HIM SCAN 05/01/2023 12:00 AM MILK VENDOR COMPREHENSIVE METABOLIC PANEL Routine 10/02/2020 1:25 PM CDT Type 2 diabetes mellitus without complication, without long-term current use of insulin (H) MA SCREENING BILATERAL W/ SERG Routine 05/23/2020 9:18 AM MILK VENDOR Visit for screening mammogram LIPID REFLEX TO DIRECT LDL PANEL Routine 03/08/2020 6:59 AM CDT Type 2 diabetes mellitus without complication, without long-term current use of insulin (H) Hyperlipidemia LDL goal <100 PAP IMAGED THIN LAYER SCREEN Routine 06/09/2018 11:18 AM MILK VENDOR Encounter for gynecological examination without abnormal finding from Last 3 Months or Most Recently Relevant to Health Maintenance Results * COLONOSCOPY - HIM SCAN (05/01/2023 12:00 AM MILK VENDOR) 05/01/2023 Provider Outside PROCEDURES * Comprehensive metabolic panel (10/02/2020 1:25 PM CDT) Sodium 138 133 - 144 mmol/L 10/02/2020 7:30 PM CDT [facility] Potassium 4.1 3.4 - 5.3 mmol/L 10/02/2020 7:30 PM CDT [facility] Chloride 104 94 - 109 mmol/L 10/02/2020 7:30 PM CDT [facility] Carbon Dioxide 31 20 - 32 mmol/L 10/02/2020 7:37 PM CDT [facility] Anion Gap 3 3 - 14 mmol/L 10/02/2020 7:37 PM [facility] Glucose 87 70 - 99 mg/dL 10/02/2020 7:37 PM [facility] Urea Nitrogen 11 7 - 30 mg/dL 10/02/2020 7:37 PM [facility] Creatinine 0.87 0.52 - 1.04 mg/dL 10/02/2020 7:37 PM [facility] GFR Estimate 79 >60 mL/min/{1. 73_m2} 10/02/2020 7:37 PM [facility] Comment: Non GFR Calc Starting 05/04/2018, serum creatinine based estimated GFR (eGFR) will be calculated using the Chronic Kidney Disease Epidemiology Collaboration (CKD-EPI) equation. GFR Estimate If Black >90 >60 mL/min/{1. 73_m2} 10/02/2020 7:37 PM [facility] Comment: GFR Calc Starting 05/04/2018, serum creatinine based estimated GFR (eGFR) will be calculated using the Chronic Kidney Disease Epidemiology Collaboration (CKD-EPI) equation. Calcium 9.1 8.5 - 10.1 mg/dL 10/02/2020 7:37 PM [facility] Bilirubin Total 0.3 0.2 - 1.3 mg/dL 10/02/2020 7:39 PM [facility] Albumin 3.7 3.4 - 5.0 g/dL 10/02/2020 7:39 PM [facility] Protein Total 7.5 6.8 - 8.8 g/dL 10/02/2020 7:39 PM [facility] Alkaline Phosphatase 90 40 - 150 U/L 10/02/2020 7:39 PM [facility] ALT 46 0 - 50 U/L 10/02/2020 7:39 PM [facility] AST 32 0 - 45 U/L 10/02/2020 7:39 PM [facility] Blood 10/02/2020 1:25 PM CDT 10/02/2020 1:26 PM CDT Froy Walker MD LAB - BLOOD ORDERABL ES [facility] Magdaleno Mcmanus [place] [id number], [facility] [phone] * MA Screen Bilateral w/Serg (05/23/2020 9:18 AM MILK VENDOR) Anatomical Region Laterality Modality Breast Bilateral Mammography Impressions 05/23/2020 2:32 PM MILK VENDOR IMPRESSION: BI-RADS CATEGORY: 1 - ??Negative RECOMMENDED FOLLOW-UP: Annual Mammography. Exam results letter mailed to patient. VAISHALI TOBAR MD Narrative 05/23/2020 2:32 PM MILK VENDOR SCREENING MAMMOGRAM, BILATERAL, DIGITAL w/CAD and TOMOSYNTHESIS [...] 183 <200 mg/dL 03/09/2020 10:03 AM CDT [facility] Triglycerides 212(H) <150 mg/dL 03/09/2020 10:03 AM CDT [facility] Comment: Borderline high: ??150-199 mg/dl High: ? 200-499 mg/dl Very high: ? >499 mg/dl Fasting specimen HDL Cholesterol 47(L) >49 mg/dL 0 10:04 AM CDT [facility] LDL Cholesterol Calculated 94 <100 mg/dL 03/09/2020 10:04 AM CDT [facility] Comment:Desirable: <100 mg/d l Non HDL Cholesterol 136(H) <130 mg/dL 03/09/2020 10:04 AM CDT [facility] Comment: Above Desirable: ??130-159 mg/dl Borderline high: ??160-189 mg/dl High: ? 190-219 mg/dl Very high: ? >219 mg/dl Blood specimen (specimen) 03/08/2020 6:59 AM CDT 03/08/2020 7:04 AM CDT Froy Walker MD LAB - BLOOD ORDERABL ES Performing Organization Address City/State/[facility] Co de Phone Number [facility] [address] [place], [place] [id number] [place] [address] [facility] [address] [place] [address] * Pap imaged thin layer screen with HPV - recommended age 30 - 65 years (select HPV order below) (06/09/2018 11:18 AM MILK VENDOR) PAP ADAN Mckinney Report Patient Name: ANGIE OCHOA MR#: [id number] Specimen #: [id number] Collected: 06/09/2018 Received: 06/10/2018 Reported: 06/14/2018 13:38 [...] lesion or malignancy Electronically signed out by: ARAM Ribera (ASCP) Processed and screened at [facility] CLINICAL HISTORY: LMP: 05/01/2018 Irregular Bleeding, A previous normal pap Date of Last Pap: 03/04/2017, Papanicolaou Test Limitations: ??Cervical cytology is a screening test with limited sensitivity; regular screening is critical for cancer prevention; Pap tests are primarily effective for the diagnosis/preventi on of squamous cell carcinoma, not adenocarcinomas or other cancers. TESTING LAB LOCATION: [address] ??[id number] COLLECTION SITE: Client: ??[facility] Location: [facility] (R) [facility] Cytologic material (specimen) 06/09/2018 11:18 AM MILK VENDOR 06/10/2018 10:18 AM MILK VENDOR Nathaniel Duran MD LAB - [facility] AL SPECIMEN Performing Organization Address City/State/[facility] Co de Phone Number [facility] from Last 3 Months or Most Recently Relevant to Health Maintenance Care Teams Strategy Manager Relationship Specialty Start Date End Date [facility], [address] [address] PCP - General 04/26/21
--- OUTSIDE RECORDS SUMMARY | 2024-02-16 12:06 | XMS_ITS | Clinical Summary ---
Author Organization [facility] Address [place], [place] [address] Care Team Providers Care Auto Detailer Name Role Phone Froy Rogers RN Primary Care Provider [phone] Allergies Active Allergy Reactions Criticality Noted Date Comments Azithromycin *Unknown 11/14/2015 Sulfa (Sulfonamide Antibiotics) *Unknown 10/17 Medications Medication Sig Dispensed Refills Start Date End Date Status metFORMIN (GLUCOPHAGE XR) 500 mg Extended-Release tablet TAKE 1 TABLET TWICE A DAY WITH MEALS (OFFICE VISIT AND LABS NEEDED) 02/11/2019 Active pravastatin (PRAVACHOL) 10 mg tablet 06/10/2019 Active albuterol HFA 90 mcg/actuation inhaler Inhale 2 Puffs by mouth. 01/04/2019 Active fluconazole (DIFLUCAN) 150 mg tablet 08/12/2019 Active oxaprozin (DAYPRO) 600 mg tablet Take 600-1,200 mg by mouth. 09/10/2018 Active SUMAtriptan (IMITREX) 25 mg tablet Take 25-50 mg by mouth. 09/07/2017 Active venlafaxine (EFFEXOR XR) 37.5 mg Extended-Release capsule Take 37.5 mg by mouth. 02/11/2019 Active Social History Tobacco Use Types Packs/Day Years Used Date Smoking Tobacco: Unknown Smokeless Tobacco: Never Alcohol Use Standard Drinks/Week Comments Not Currently 0 (1 standard drink = 0.6 oz pur e alcohol) Sex and Gender Information Value Date Recorded Sex Assigned at Not on file Gender Identity Not on file Sexual Orientation Not on file Obstetrics History Last Filed Vital Signs Vital Sign Reading Time Taken Comments Blood Pressure 119/77 06/25/2020 10:19 AM [employer] AND CONTROL OFFICER Pulse 76 06/25/2020 10:19 AM [employer] AND CONTROL OFFICER Temperature 36.7 ??C (98 ??F) 06/25/2020 10:19 AM [employer] AND CONTROL OFFICER Respiratory Rate 20 06/25/2020 10:19 AM [employer] AND CONTROL OFFICER Oxygen Saturation 96% 06/25/2020 10:19 AM [employer] AND CONTROL OFFICER Inhaled Oxygen Concentration - - Weight 106.6 kg (235 lb) 06/25/2020 10:19 AM [employer] AND CONTROL OFFICER Height 165.1 cm (5' 5) 06/25/2020 10:19 AM [employer] AND CONTROL OFFICER Body Mass Index 39.11 06/25/2020 10:19 AM [employer] AND CONTROL OFFICER Plan of Treatment Health Maintenance Due Date Last Done Comments Tdap 01/06/1984 Depression screening for age 12+ 1985 HIV for age 15-65 01/06/1988 BMI (ht and wt on same day) for age 18+ 1991 Hepatitis C screening for age 18-79 1991 Tetanus booster 1993 Colonoscopy through age 75 2018 Lipids for age 45-75 2018 Mammogram for age 45-75 2018 Zoster (shingles) series for age 50+ (1 of 2) 2023 COVID-19 vaccine series ( season) 2024 09/13/2020, 08/21/2020 Influenza for age 50-64 01/17/2024 Pap test for age 21-65 07/01/2026 , 07/01/2023, 05/24/2021, Additional history exists Pneumococcal series for age 6-64 Aged Out No longer eligible based on patient's age to complete this topic Procedures Procedure Name Priority Date/Time Associated Diagnosis Comments HPV HIGH RISK Routine 07/01/2023 3:30 PM [employer] CONTROL OFFICER from Last 3 Months or Most Recently Relevant to Health Maintenance Results * HPV HIGH RISK (07/01/2023 3:30 PM COMMAND AND CONTROL OFFICER) TYPE 16 Negative Negative 07/06/2023 4:45 PM COMMAND AND CONTROL OFFICER [facility] TYPE 18 Negative Negative 07/06/2023 4:45 PM COMMAND AND CONTROL OFFICER [facility] OTHER HIGH RISK TYPES Negative Negative 07/06/2023 4:45 PM COMMAND AND CONTROL OFFICER [facility] Other (Cervical) 07/01/2023 3:30 PM COMMAND AND CONTROL OFFICER 07/03/2023 12:25 PM COMMAND AND CONTROL OFFICER Narrative [facility] - 07/06/2023 4:45 PM COMMAND AND CONTROL OFFICER HPV types 16, 18, 31, 33, 35, 39, 45, 51, 52, 56, 58, 59, 66 and 68 DNA were undetectable or below the pre-set threshold. Methodology: Deneen Lashonda 4800 HPV Test Deborah Luciano NP MICROBIOLOGY [facility] [address] [place] [address], from Last 3 Months or Most Recently Relevant to Health Maintenance Care Teams Auto Detailer Relationship Specialty Start Date End Date Froy Rogers, RN [facility] [address] [place] [address] PCP - General Registered Nurse 06/25/20
--- OUTSIDE RECORDS SUMMARY | 2024-02-16 12:06 | XMS_ITS | Encounter Summary ---
Author Organization [place] Address [facility] [place] [address] Care Team Providers Care Logistical Engineer Name Role Phone Froy Walker MD Primary Care Provider Froy Walker MD Unavailable [phone] Paul Brooks MD Unavailable [facility] Primary Care Provider Froy Walker MD Unavailable [phone] Clinic - [facility] Unavailable Encounter Details Date Type Department Care Team (Late st Contact Info) Description 11/19/2020 MyC Medical Advice [facility] Jaime [address] [place] [address] Yokasta Forbes, JEW[employer] DRILLER [address] [facility] [place] [address] Social History Tobacco Use Types Packs/Day Years [...] have Coronavirus / COVID-19? No / Unsure 11/18/2020 2:23 PM CDT documented as of this encounter Plan of Treatment Not on file documented as of this encounter Visit Diagnoses Not on filedocumented in this encounter Additional Health Concerns Assessment Noted Time PHQ-9 Depression Total Score: 6 09/11/19 19 11:17 AM CDT documented as of this encounter Care Teams Logistical Engineer Relationship Specialty Start Date End Date Froy Walker MD [address] [place] [address] [place] [address] PCP - General Internal Medicine 08/26/19 04/25/[address] [address] PCP - General 04/26/21 Froy Walker MD [address] [place] [address] [place] [address] Assigned PCP 01/22/20 05/02/22 Paul Brooks MD [address] [facility] [place] [address] Assigned OBGYN Provider 03/09/20 2 Froy Walker MD [address] [place] [address] [place] [address] Assigned PCP 07/12/22 03/20/23 [facility] Jaime [address] [place] [address] Assigned PCP 06/11/23 01/07/24 documented as of this encounter
== END 2024-02-16 12:03 | disposition home or self-care (01) ==
PROVIDERS: PCP Family Medicine; Visit Provider Family Medicine
DX: H20.9 Unspecified iridocyclitis (principal); M54.9 Dorsalgia, unspecified; R74.01 Elevation of levels of liver transaminase levels; E66.01 Morbid (severe) obesity due to excess calories; E11.9 Type 2 diabetes mellitus without complications
CPT/HCPCS: 80053; 83690; 86140; 86812

== ENCOUNTER 2024-04-29 10:15 | Outpatient (RCR) | payer OTHER, SELFPAY | END 2024-06-30 14:44 | disposition home or self-care (01) | PROVIDERS: PCP Family Medicine; Visit Provider Podiatrist | DX: M76.62 Achilles tendinitis, left leg (principal); M79.672 Pain in left foot; Z51.89 Encounter for other specified aftercare | CPT/HCPCS: 97110; 97140; 97161 ==

== ENCOUNTER 2024-05-09 09:52 | Outpatient (CLI) | payer OTHER, SELFPAY | END 2024-05-09 09:53 | disposition home or self-care (01) | LOC: NFLDREF 18:03 | PROVIDERS: PCP Family Medicine; Referring Provider Family Medicine; Visit Provider Family Medicine | DX: E11.9 Type 2 diabetes mellitus without complications (principal); R74.01 Elevation of levels of liver transaminase levels; E78.5 Hyperlipidemia, unspecified; R16.0 Hepatomegaly, not elsewhere classified | CPT/HCPCS: 80053; 80061; 82043; 82570 ==

== ENCOUNTER 2024-05-16 08:42 | Outpatient (CLI) | payer OTHER, SELFPAY ==
--- NOTE | 2024-05-16 08:45 | CRLHL7_ITS ---
For Patients: As a result of the Century Cures Act, medical imaging exams and procedure reports are released immediately into your electronic medical record. You may view this report before your referring provider. If you have questions, please contact your health care provider. INDICATION: Elevated LFTs, mass in liver COMPARISON: none TECHNIQUE: Real time quinones scale imaging and color Doppler analysis was performed of the right upper quadrant. FINDINGS: Liver echotexture is diffusely increased and coarsened. Liver measures 15.6 cm. Hypoechoic lesion within the right hepatic lobe measures 1.3 x 1.1 x 2.1 cm. Second hypoechoic lesion left hepatic lobe measures 1.1 x 0.7 x 0.7 cm. There is a normal appearance of the hepatic IVC and proximal abdominal aorta. There is no evidence of ascites. The gallbladder is of normal size and there is no evidence of intraluminal stones or sludge. The gallbladder wall measures 1.8 mm in thickness. The common bile duct is of normal size and measures 4.8 mm in diameter at the level of the french hepatis. The pancreas appears normal. There is no evidence of a stone or hydronephrosis within the right kidney. The right kidney measures 11.0 cm in length. IMPRESSION: Moderately severe diffuse hepatic steatosis with 2 indeterminate hypoechoic lesions within the liver measuring 2.1 cm and 1.1 cm. Liver MRI with and without contrast recommended for further evaluation. Dictated by David Bergeron MD @ 05/16/2024 9:50:56 AM (Electronically Signed)
== END 2024-05-16 08:43 | disposition home or self-care (01) ==
LOC: US 08:43
PROVIDERS: PCP Family Medicine; Visit Provider Family Medicine
DX: R74.01 Elevation of levels of liver transaminase levels (principal); K76.0 Fatty (change of) liver, not elsewhere classified; R16.0 Hepatomegaly, not elsewhere classified
CPT/HCPCS: 76705

== ENCOUNTER 2024-06-03 07:19 | Outpatient (CLI) | payer OTHER, SELFPAY ==
--- NOTE | 2024-06-03 07:15 | CRLHL7_ITS ---
For Patients: As a result of the Century Cures Act, medical imaging exams and procedure reports are released immediately into your electronic medical record. You may view this report before your referring provider. If you have questions, please contact your health care provider. Indication: Ultrasound follow-up, liver disease Technique: MRI Abdomen 20 milliliters Dotarem contrast according to the routine protocol. Comparison: Ultrasound April 2024 Findings: Lower chest: No pleural or pericardial effusion. ABDOMEN: Liver: Normal enhancement. Diffuse hepatic steatosis. Within the right hepatic lobe segment 5, there is a 12 millimeter subtle T1 bright lesion that is not well seen on any other sequence. Likely associated contrast enhancement isointense to adjacent liver parenchyma. Wraparound artifact and motion artifact as well as decreased signal to noise ratio degrades evaluation on multiple sequences including the restriction diffusion sequences. Gallbladder and biliary: Normal gallbladder without stone. Normal caliber bile ducts. Spleen: Normal size and enhancement. Pancreas: Normal enhancement without peripancreatic inflammatory changes or ductal dilatation. Adrenal glands: Normal adrenal glands. Kidneys and ureters: Normal enhancement. No hydroureteronephrosis. Tiny renal cysts. GI tract: The stomach is relatively decompressed. Normal caliber small and large bowel loops where visualized. Vascular structures: Normal caliber abdominal aorta. Lymph nodes: No lymphadenopathy in the abdomen by size criteria. Peritoneum: No free fluid, or focal drainable fluid collection. SKELETAL STRUCTURES AND SOFT TISSUES: Normal marrow signal where visualized. Impression: 1. Diffuse hepatic steatosis. 2. Corresponding to findings of prior ultrasound, within the right hepatic lobe segment 5, there is a 12 millimeter subtle T1 bright lesion that is not well seen on any other sequence. Likely associated contrast enhancement isointense to adjacent liver parenchyma. Incompletely characterized on this exam. Leading differential considerations however include focal nodular hyperplasia or hepatic adenoma. Recommend repeat dynamic MRI sequences utilizing Eovist contrast and including a 20 minute delayed acquisition. Dictated by David Stock MD @ 06/03/2024 10:29:57 AM (Electronically Signed)
== END 2024-06-03 07:20 | disposition home or self-care (01) ==
LOC: MRI 07:21
PROVIDERS: PCP Family Medicine; Visit Provider Nurse Practitioner Family
DX: K76.9 Liver disease, unspecified (principal); K76.0 Fatty (change of) liver, not elsewhere classified
CPT/HCPCS: 74183; A9575

== ENCOUNTER 2024-10-26 09:37 | Outpatient (CLI) | payer OTHER, SELFPAY ==
--- NOTE | 2024-10-26 09:45 | CRLHL7_ITS ---
For Patients: As a result of the Century Cures Act, medical imaging exams and procedure reports are released immediately into your electronic medical record. You may view this report before your referring provider. If you have questions, please contact your health care provider. CLINICAL HISTORY: LEFT breast pain. COMPARISON: 09/27/2024, 08/21/2023, 06/03/2022 TECHNIQUE: Digital BILATERAL mammogram in 4 projections with computer-aided detection. Tomosynthesis was used in this interpretation. Real-time ultrasound imaging of LEFT breast with imaging documentation. BREAST COMPOSITION: The breasts are heterogeneously dense, which may obscure small masses. FINDINGS: 3D cc/MLO bilateral mammogram images submitted. No suspicious masses or architectural distortion. No suspicious calcifications or adenopathy. Targeted left breast ultrasound 3 cm from the nipple 6 o`clock from the nipple performed. Dense fibroglandular tissue is present along with small cysts. No solid masses. No suspicious findings. IMPRESSION: Benign fibrocystic change with normal fibroglandular tissue. No evidence of malignancy. RECOMMENDATIONS: Routine screening mammography. BI-RADS Category 2. Benign. Dictated by David Bergeron MD @ 10/26/2024 11:13:30 AM (Electronically Signed)
--- NOTE | 2024-10-26 10:15 | CRLHL7_ITS ---
For Patients: As a result of the Century Cures Act, medical imaging exams and procedure reports are released immediately into your electronic medical record. You may view this report before your referring provider. If you have questions, please contact your health care provider. PLEASE SEE BILATERAL DIAGNOSTIC MAMMOGRAM OF SAME DAY FOR COMBINED REPORT. [email or web address] RD/Dictated by: David Bergeron MD @ 10/26/2024 11:13:00 AM (Electronically Signed)
== END 2024-10-26 09:38 | disposition home or self-care (01) ==
LOC: MAMMO 09:37
PROVIDERS: PCP Family Medicine; Visit Provider Family Medicine
DX: N64.4 Mastodynia (principal); R92.333 Mammographic heterogeneous density, bilateral breasts
CPT/HCPCS: 76642; 77066; G0279

== ENCOUNTER 2024-10-28 15:03 | Outpatient (CLI) | payer OTHER, SELFPAY | END 2024-10-28 15:04 | disposition home or self-care (01) | PROVIDERS: PCP Family Medicine; Visit Provider Family Medicine | DX: R74.01 Elevation of levels of liver transaminase levels (principal); R53.83 Other fatigue; E78.5 Hyperlipidemia, unspecified; R52 Pain, unspecified; K13.70 Unspecified lesions of oral mucosa | CPT/HCPCS: 82306; 84443; 86618 ==

== ENCOUNTER 2025-03-22 09:33 | Outpatient (CLI) | payer OTHER, SELFPAY | END 2025-03-22 09:34 | disposition home or self-care (01) | PROVIDERS: PCP Family Medicine; Visit Provider Family Medicine | DX: E11.9 Type 2 diabetes mellitus without complications (principal); Z00.00 Encounter for general adult medical examination without abnormal findings | CPT/HCPCS: 80053; 80061; 82043; 82570 ==